=== PATIENT | male | born 1945 | race Caucasian/White ===

== ENCOUNTER → 2017-08-22 14:34 | Outpatient (POV) | payer MEDICARE, OTHER, SELFPAY | DX: Z00.00 Encounter for general adult medical examination without abnormal findings (principal) ==

== ENCOUNTER → 2017-10-10 13:30 | Outpatient (POV) | payer MEDICARE, OTHER, SELFPAY | DX: Z00.00 Encounter for general adult medical examination without abnormal findings (principal) ==

== ENCOUNTER 2020-03-16 01:16 | Inpatient (IN) | payer MEDICARE, SELFPAY ==
[2020-03-16] VITALS (21 sets, daily range): BP systolic 97–157; BP diastolic 45–87; PULSE 57–107; RESP 18–26; TEMP 36.1–38.8; O2SAT 81–96; BMI 30.5; BMI 27.8
--- NOTE | 2020-03-16 01:35 | PC.NURSE ---
EMS was given a contact number of [phone]
[2020-03-16 01:36] LABS: ABG Base Excess -7.1 mmol/L (-2.4-2.3); ABG HCO3 17.7 mmhg (22.0-26.0); ABG Oxygen Saturation 88 % (90-100); ABG PCO2 29.5 mmhg (35.0-45.0); ABG PO2 53.2 mmhg (80-100); ABG TCO2 18.6 mmhg (23-27); Allen's Test Acceptable; Oxygen 4L %; Source Left Radial
--- NOTE | 2020-03-16 01:39 | HMH.EDSOB ---
ED Disposition Clinical Impression: Pneumonia due to 2019 novel coronavirus, COVID-19 virus detected, Obesity (BMI 30.0-34.9), Diabetes mellitus, insulin dependent (IDDM), controlled Cholelithiasis Qualifiers: Cholelithiasis location: gallbladder Cholecystitis presence: without cholecystitis Biliary obstruction: without biliary obstruction Qualified Code(s): K80.20 - Calculus of gallbladder without cholecystitis without obstruction Disposition: Admitted As Inpatient Condition on Discharge: Fair Referrals: Awais Carrsaquillo MD [Primary Care Provider] - - Critical Care Critical Care Time: No Attestation: On 03/16/20, the high probability of a clinically significant, sudden or life threatening deterioration of the following system(s) required my full and direct attention, intervention and personal management. The time I documented below is in addition to time spent performing reported procedures but includes the following listed in this critical care notation. Medical Decision Making - Medical Records Medical records reviewed: Yes: I reviewed the patient's medical records. - Ad Inquiry Pt receiving controlled substance: No Vital Signs: 03/16/20 01:19 03/16/20 01:50 03/16/20 02:20 Temperature 101.8 F H Temperature Source Oral Pulse Rate [Right] 101 H 98 H 101 H Respiratory Rate 26 H 25 H 26 H Blood Pressure [Right Arm] 142/73 H 137/73 149/69 H Blood Pressure Mean [Right Arm] 96 94 95 Blood Pressure Source [Right Arm] Automatic Cuff Automatic Cuff Automatic Cuff Blood Pressure Position [Right Arm] Supine Sitting Sitting 02 Sat by Pulse Oximetry 81 L 93 L 92 L Oxygen Delivery Method Room Air Nasal Cannula Nasal Cannula Oxygen Flow Rate (LPM) 4 4 03/16/20 02:50 03/16/20 03:20 03/16/20 03:50 Temperature 101.1 F H 100.8 F H Temperature Source Oral Oral Pulse Rate [Right] 107 H 93 H 95 H Respiratory Rate 24 22 24 Blood Pressure [Right Arm] 147/83 H 142/77 H 152/78 H Blood Pressure Mean [Right Arm] 104 98 102 Blood Pressure Source [Right Arm] Manual Cuff/ Doppler Automatic Cuff Automatic Cuff Blood Pressure Position [Right Arm] Sitting Sitting Sitting 02 Sat by Pulse Oximetry 90 L 90 L 89 L Oxygen Delivery Method Nasal Cannula Nasal Cannula Nasal Cannula Oxygen Flow Rate (LPM) 4 4 4 03/16/20 04:20 03/16/20 04:50 03/16/20 05:20 Temperature Temperature Source Pulse Rate [Right] 94 H 87 62 Respiratory Rate 21 21 20 Blood Pressure [Right Arm] 152/87 H 127/63 104/45 L Blood Pressure Mean [Right Arm] 108 84 64 Blood Pressure Source [Right Arm] Automatic Cuff Automatic Cuff Automatic Cuff Blood Pressure Position [Right Arm] Sitting Sitting Sitting 02 Sat by Pulse Oximetry 92 L 91 L 91 L Oxygen Delivery Method Nasal Cannula Nasal Cannula Nasal Cannula Oxygen Flow Rate (LPM) 2 4 4 03/16/20 05:50 Temperature Temperature Source Pulse Rate [Right] 71 Respiratory Rate 20 Blood Pressure [Right Arm] 101/56 L Blood Pressure Mean [Right Arm] 71 Blood Pressure Source [Right Arm] Automatic Cuff Blood Pressure Position [Right Arm] Sitting 02 Sat by Pulse Oximetry 93 L Oxygen Delivery Method Nasal Cannula Oxygen Flow Rate (LPM) 4 - Lab Data Lab results reviewed: Yes: I reviewed the patient's lab results. Lab Results 03/16/20 01:10: WBC 8.9, RBC 4.43 L, Hgb 13.8 L, Hct 43.8, MCV 98.8 H, MCH 31.2, MCHC 31.6 L, RDW 13.3, Plt Count 282, MPV 8.3, Neut % (Auto) 83.9 H, Lymph % (Auto) 10.3, [place] % (Auto) 5.2, Eos % (Auto) 0.0 L, Baso % (Auto) 0.6, Neut # (Auto) 7.5, Lymph # (Auto) 0.9, [place] # (Auto) 0.5, Eos # (Auto) 0.0, Baso # (Auto) 0.1, ESR 109 H 03/16/20 01:10: Sodium 137, Potassium 4.8, Chloride 105, Carbon Dioxide 22, Anion Gap 14.8, BUN 67 H, Creatinine 2.20 H, Estimated Creat Clear 36, Estimated GFR 29 L, Est GFR ( Amer) 35 L, Glucose 299 H, Calcium 9.2, Total Bilirubin 0.6, AST 104 H, ALT 52, Alkaline Phosphatase 69, Troponin I 0.05 H, C-Reactive Protein 73.3 H, Total Protein 7.3, [place]
--- NOTE | 2020-03-16 01:39 | PC.NURSE ---
Pt was 81% O2 sats on room air, pt placed on 4 L/M of O2
[2020-03-16 01:42] LABS: Basophils # 0.1 K/mm3 (0-0.2); Basophils % 0.6 % (0.1-2.0); Hematocrit 43.8 % (42.0-52.0); Hemoglobin 13.8 g/dL (14.1-18.0); Lymphocytes # 0.9 K/mm3 (0.7-4.5); Lymphocytes % 10.3 % (10-50); Mean Corpuscular HGB Conc 31.6 g/dL (31.8-35.4); Mean Corpuscular Hemoglobin 31.2 pg (27.0-31.2); Mean Corpuscular Volume 98.8 fl (80-94); Mean Platelet Volume 8.3 fl (7.4-10.4); Monocytes # 0.5 K/mm3 (0.1-1.0); Monocytes % 5.2 % (1.7-9.3); Neutrophils # 7.5 K/mm3 (1.8-7.8); Neutrophils % 83.9 % (37.0-80.0); Platelet Count 282 K/mm3 (142-424); Red Blood Count 4.43 M/mm3 (4.60-6.20); Red Cell Distribution Width 13.3 % (11.5-17.5); White Blood Count 8.9 K/mm3 (4.8-10.8)
[2020-03-16 01:43] LABS: Chloride 105 mmol/L (98-107); Potassium 4.8 mmoL/L (3.5-5.1); Sodium 137 mmol/L (136-145)
[2020-03-16 01:43] LABS: Adenovirus,PCR Not Detected (NotDetected); Bordetella Pertussis Not Detected (NotDetected); Chlamydophila Pneumoniae, PCR Not Detected (NotDetected); Coronavirus 229E Not Detected (NotDetected); Coronavirus NL63 Not Detected (NotDetected); Coronavirus OC43 Not Detected (NotDetected); Coronovirus HKU1,PCR Not Detected (NotDetected); Human Metapneumovirus Not Detected (NotDetected); Influenza A, PCR Not Detected (NotDetected); Influenza AH1, 2009 Not Detected (NotDetected); Influenza AH1, PCR Not Detected (NotDetected); Influenza AH3,PCR Not Detected (NotDetected); Influenza B, PCR Not Detected (NotDetected); Mycoplasma Pneumoniae, PCR Not Detected (NotDetected); Parainfluenza 1, PCR Not Detected (NotDetected); Parainfluenza 2, PCR Not Detected (NotDetected); Parainfluenza 3, PCR Not Detected (NotDetected); Parainfluenza 4, PCR Not Detected (NotDetected); Respiratory Syncytial Virus Not Detected (NotDetected); Rhinovirus/Enterovirus Not Detected (NotDetected)
[2020-03-16 01:46] LABS: Alanine Aminotransferase 52 U/L (12-78); Albumin Level 3.8 g/dl (3.5-5.0); Albumin/Globulin Ratio 1.1 (1.1-1.8); Alkaline Phosphatase 69 U/L (38-126); Anion Gap 14.8 mEq/L (5-15); Aspartate Amino Transferase 104 U/L (17-59); Bilirubin,Total 0.6 mg/dl (0.2-1.3); Blood Urea Nitrogen 67 mg/dl (9-20); Carbon Dioxide 22 mmol/L (22.0-30.0); Creatinine Clearance Estimated 36 mL/min (50-200); Estimated Glomerular Filt Rate 29 ml/min (>60); GFR (African American) 35 ML/MIN (>60); Globulin 3.5 g/dL (1.3-3.2); Total Protein,Serum 7.3 g/dl (6.3-8.2)
[2020-03-16 01:47] LABS: Calcium 9.2 mg/dl (8.4-10.2); Glucose 299 mg/dl (74-100)
[2020-03-16 01:48] LABS: Lactic Acid 3.4 mmol/L (0.7-2.1)
[2020-03-16 01:52] LABS: C-Reactive Protein 73.3 mg/L (0-4)
[2020-03-16 02:00] LABS: Troponin I 0.05 ng/ml (0.00-0.034)
[2020-03-16 02:04] LABS: Coronavirus 19 IgG Antibody Positive (Negative); Coronavirus 19 IgM Antibody Negative (Negative)
--- NOTE | 2020-03-16 02:08 | XR_ITS ---
PROCEDURE: XR CHEST PORTABLE CLINICAL HISTORY: Shortness of breath Covid19 positive COMPARISON: No exams were available for comparison FINDINGS: The cardiomediastinal silhouette and pulmonary vascularity are within normal limits. There are low lung volumes. Consolidation noted in the peripheral aspect of the right upper and right lower lobe and left upper lobe consistent with bilateral pneumonia which has a ground-glass appearance consistent with pneumonia/Covid19 pneumonia no effusions. No acute bony abnormalities. IMPRESSION: Bilateral pneumonia Dictated by: Lizandro Elena MD 03/16/2020 05:31 Lizandro Elena MD in [place] 03/16/2020 05:31
--- NOTE | 2020-03-16 02:12 | PC.NURSE ---
speaking to dr perez at this time
--- NOTE | 2020-03-16 02:14 | ECG_ITS ---
APPROVED REPORT Exam: Resting ECG HR:140 bpm ECG Measurements Heart Rate 140 AXES QRSd 84 QRS -36 QT 310 T 101 QTc 473 Conclusion Supraventricular tachycardia Left axis deviation ST & T wave abnormality, consider lateral ischemia Abnormal ECG Electronically signed by : Timoteo Ceja, 03/16/2020 06:56:00
[2020-03-16 02:36] LABS: Erythrocyte Sedimentation Rate 109 mm/hr (0-20)
[2020-03-16 03:06] LABS: Coronavirus 19, PCR Detected (NotDetected)
--- NOTE | 2020-03-16 04:20 | CT_ITS ---
PROCEDURE: CT CHEST WO CON Post understand this this 6 this this this CLINICAL INDICATION: SOA, COVID COMPARISON: No exams were available for comparison TECHNIQUE: Axial images obtained with sagittal and coronal reformats. All CT scans at the facility use one or more dose reduction, viz: automated exposure control, ma/kV adjustment per patient size (including targeted exams where dose is matched to indication, i.e. head), or iterative reconstruction technique. FINDINGS: There is mild cardiomegaly. Coronary artery calcifications are noted. There is thickening of the gastroesophageal junction. This is nonspecific and may only be due to nondistention. Neoplasm or esophagitis is also considered in the differential diagnosis. Barium swallow or upper endoscopy may provide further evaluation.. There is patchy multifocal ground-glass infiltrates within the lower lobes lingula and right middle lobe and both upper lobes consistent with Covid19 related pneumonia. No effusions. The extreme posterior costophrenic sulcus on the right is not imaged. Bilateral gynecomastia. Cholelithiasis noted. IMPRESSION: 1. Multifocal ground-glass infiltrates throughout both lungs consistent with Covid19 related pneumonia. 2. Cardiomegaly with coronary artery calcifications. 3. Cholelithiasis Dictated by: Lizandro Elena MD 03/16/2020 07:17 Lizandro Elena MD in [place] 03/16/2020 07:17
--- NOTE | 2020-03-16 04:56 | PC.NURSE ---
Pt in CT
--- NOTE | 2020-03-16 04:58 | PC.NURSE ---
pt back from CT
[2020-03-16 05:21] LABS: Reflex Lactic Add Lactic Reflex
[2020-03-16 05:30] LABS: Lactic Acid Follow Up (RFLX 1) 1.4 mmol/L (0.7-2.1)
[2020-03-16 05:43] LABS: Troponin I 0.04 ng/ml (0.00-0.034)
--- NOTE | 2020-03-16 06:21 | PC.NURSE ---
on the phone with Dr. Michel
--- NOTE | 2020-03-16 06:27 | PC.NURSE ---
Pt admitted for COVID 19, no Negative pressure rooms available, pt will be boarding in ED
--- NOTE | 2020-03-16 08:45 | PC.NURSE ---
contacted the [facility] unit to check on bed status, spoke with antonia who states both nurses are busy but he will have them call me.
--- NOTE | 2020-03-16 09:00 | PC.NURSE ---
Pt sitting on side of bed eating breakfast at this time. No complaints. Called to check status of bed, advised they would call back
--- NOTE | 2020-03-16 09:09 | HMH.PHAVTE ---
[facility] Pharmacy VTE Monitoring - Patient Demographics Admission date: 03/16/20 Report Date: 03/16/20 Time: 09:09 Allergies/Adverse Reactions: Patient Allergies No Known Allergies Allergy (Verified 12/26/18 19:28) Height: 1.7 m Weight: 88.451 kg Patient Problems: Current Active Problems Pneumonia due to 2019 novel coronavirus (Acute) COVID-19 virus detected (Acute) Obesity (BMI 30.0-34.9) (Acute) Cholelithiasis (Acute) Diabetes mellitus, insulin dependent (IDDM), controlled (Acute) - VTE Risk Labs: VTE Related Lab Results Hgb 13.8 g/dL (14.1-18.0) L 03/16/20 01:10 Hct 43.8 % (42.0-52.0) 03/16/20 01:10 Plt Count 282 K/mm3 (142-424) 03/16/20 01:10 BUN 67 mg/dl (9-20) H 03/16/20 01:10 Creatinine 2.20 mg/dl (0.66-1.25) H 03/16/20 01:10 Estimated Creat Clear 36 mL/min (50-200) 03/16/20 01:10 Clinical Trial Participant: No - Prophylaxis VTE Prophylaxis Ordered?: Yes Types of VTE Prophylaxis: TEDS Knee High
--- NOTE | 2020-03-16 09:14 | PC.NURSE ---
contacted [facility] unit again at this time to check on bed status, spoke with Konrad who states both nurses area still busy.
--- NOTE | 2020-03-16 09:19 | PC.NURSE ---
Dr Carrasquillo's SHIPPING WEIGHER at bedside at this time.
--- NOTE | 2020-03-16 09:22 | HMH.PHAINT ---
clarified home medication list with list from [facility] office and home pharmacy
--- NOTE | 2020-03-16 09:30 | PC.NURSE ---
Spoke with Jessica about patient.
--- NOTE | 2020-03-16 09:45 | HMH.HP ---
*Admission Date: 03/16/20 <Barby Lazaro - 03/16/20 10:26> *Chief complaint: cough; falls <Barby Lazaro - 03/16/20 10:26> *History of present illness: Mr. 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 with shortness of breath. According the ER record he has not been feeling well since the holidays. When questioning today he admits to not feeling well for the last week. He describes shortness of breath and frequent falls. He has had to be picked up by his sons. He denies cough although he has been coughing frequently during this assessment. He states the cough is nonproductive. He also states that he has not had a fever. He has probably had some postnasal drainage. He feels he has been eating and drinking as usual at home. He also stated that his whole family has been sick. With evaluation in the emergency room chest x-ray and CT of the chest revealed multifocal ground glass infiltrates throughout both lungs consistent with COVID-19 related pneumonia, cardiomegaly with coronary artery calcifications and cholelithiasis. Laboratory data: ABGs revealed a pH of 7.4 PCO2 of 29.5 PO2 53.2 and a bicarb of 17.7. CBC with a white blood cell count of 8900, hemoglobin of 13.8 and hematocrit of 43.8 with a left shift. Blood chemistries reveal normal electrolytes and BUN of 67 creatinine of 2.2. GFR is 29. Blood sugar is 299. Lactate was 3.4 and reduced to 1.4 after IV fluid boluses. Patient was also given dexamethasone IV and will receive remdesivir. Also to note patient Covid IgG was positive and IgM was negative. PCR was positive. Temp on admission to the emergency room was 101.1. This patient was admitted to the Covid unit with routine Covid orders. We will add Rocephin and Zithromax as well as DuoNeb's. <Barby Lazaro - 03/16/20 10:26> [facility] History Medical History: Reports:: Diabetes Mellitus Type 1, Diabetes Mellitus Type 2 (With diabetic neuropathy and retinopathy), Hyperlipidemia, Hypertension, Transient Ischemic Attacks (TIA) Denies:: Internal Pacemaker, Lung Disease, Seizures <Lazaro,Barby 03/16/20 10:26> *Have you ever received a pneumonia vaccine?: Yes <Lazaro,Barby 03/16/20 10:26> *Have you received a flu vaccine this season?: Yes <TejasBarby 03/16/20 10:26> Laterality Cases: Bilateral: Cataract <TejasBarby 03/16/20 10:26> Other Surgeries: No: Pacemaker <LazaroBarby 03/16/20 10:26> Comment: Multiple retinal surgeries <TejasBarby 03/16/20 10:26> - *Social History Smoking Status: Never smoker <TejasBarby 03/16/20 10:26> Alcohol Intake: never <TejasBarby 03/16/20 10:26> *Occupational Status:: retired <TejasBarby 03/16/20 10:26> *Travel in the last 8 weeks: None <TejasBarby 03/16/20 10:26> Family Hx:: Cancer, Diabetes <TejasBarby 03/16/20 10:26> Review of Systems - Constitutional Denies body ache(s), Denies fever(s) <TejasBarby 03/16/20 10:26> - Eyes Denies change in vision <TejasBarby 03/16/20 10:26> - ENT Denies ear pain, Denies sore throat <Barby Lazaro 03/16/20 10:26> - *Cardiovascular Reports shortness of breath, Denies chest pain <Barby Lazaro 03/16/20 10:26> - *Respiratory Reports cough, Reports shortness of breath <Joi Lazarohy 03/16/20 10:26> - *Gastrointestinal Denies abdominal pain, Denies belching, Denies change in bowel habits, Denies nausea, Denies vomiting <Barby Lazaro 03/16/20 10:26> - *Genitourinary Denies difficulty urinating <Barby Lazaro 03/16/20 10:26> - *Musculoskeletal Reports abnormal walking (Has had multiple falls. Worse this past week.) <Barby Lazaro - 03/16/20 10:26> - *Neurologic Denies seizure-like activity, Denies headache(s), Denies seizure-like act
[2020-03-16 12:03] LABS: POC Glucose,Bedside 423 (70-110)
[2020-03-16 16:19] LABS: POC Glucose,Bedside 243 (70-110)
[2020-03-16 16:19] LABS: POC Glucose,Bedside 182 (70-110)
--- NOTE | 2020-03-16 18:35 | PC.NURSE ---
Pt is alert and oriented x4. Lungs clear but diminished. He remains on 4L NC with O2 in the mid 90's. He ambulated to the bathroom with 1 assist. Abdomen is large and round with umbilicus protruding. He has scattered scabbing to ble and upper extremities. He had 1 episode in bowel and bladder incontinence. Appetite is poor. Meds crushed and mixed with applesauce. Report to be given to oncoming nurse.
--- NOTE | 2020-03-16 19:05 | PC.NURSE ---
Kina aware of dr Candida rodas
[2020-03-16 20:26] LABS: POC Glucose,Bedside 147 (70-110)
[2020-03-17] VITALS (27 sets, daily range): BP systolic 91–142; BP diastolic 47–90; PULSE 64–140; RESP 15–36; TEMP 36.7–38.4; O2SAT 84–99; BMI 28.4; BMI 28.3
--- NOTE | 2020-03-17 00:45 | ECG_ITS ---
APPROVED REPORT Exam: Resting ECG HR:131 bpm ECG Measurements Heart Rate 131 AXES QRSd 94 QRS -5 QT 296 T 115 QTc 437 Conclusion Atrial fibrillation with rapid ventricular response with premature ventricular or aberrantly conducted complexes ST & T wave abnormality, consider lateral ischemia or digitalis effect Abnormal ECG Electronically signed by : Timoteo Ceja, 03/18/2020 19:30:35
[2020-03-17 02:26] LABS: Chloride 115 mmol/L (98-107); Potassium 4.3 mmoL/L (3.5-5.1); Sodium 141 mmol/L (136-145)
[2020-03-17 02:29] LABS: Alanine Aminotransferase 42 U/L (12-78); Alkaline Phosphatase 58 U/L (38-126); Anion Gap 13.3 mEq/L (5-15); Aspartate Amino Transferase 87 U/L (17-59); Bilirubin,Total 0.4 mg/dl (0.2-1.3); Blood Urea Nitrogen 52 mg/dl (9-20); Carbon Dioxide 17 mmol/L (22.0-30.0); Creatine Kinase 1050 U/L (55-170); Creatinine Clearance Estimated 43 mL/min (50-200); Estimated Glomerular Filt Rate 39 ml/min (>60); GFR (African American) 48 ML/MIN (>60)
[2020-03-17 02:30] LABS: Calcium 8.5 mg/dl (8.4-10.2); Glucose 232 mg/dl (74-100)
[2020-03-17 02:38] LABS: CKMB Relative Index 0.9 U/L (0-4.0)
[2020-03-17 02:42] LABS: Troponin I 0.04 ng/ml (0.00-0.034)
[2020-03-17 02:43] LABS: Basophils % 0.2 % (0.1-2.0); Eosinophils % 0.1 % (0.1-12.0); Hematocrit 40.2 % (42.0-52.0); Hemoglobin 12.2 g/dL (14.1-18.0); Lymphocytes # 0.8 K/mm3 (0.7-4.5); Lymphocytes % 5.8 % (10-50); Mean Corpuscular HGB Conc 30.4 g/dL (31.8-35.4); Mean Corpuscular Hemoglobin 30.6 pg (27.0-31.2); Mean Corpuscular Volume 100.9 fl (80-94); Mean Platelet Volume 8.8 fl (7.4-10.4); Monocytes # 0.6 K/mm3 (0.1-1.0); Monocytes % 4.7 % (1.7-9.3); Neutrophils # 11.9 K/mm3 (1.8-7.8); Neutrophils % 89.2 % (37.0-80.0); Platelet Count 289 K/mm3 (142-424); Red Blood Count 3.99 M/mm3 (4.60-6.20); Red Cell Distribution Width 13.5 % (11.5-17.5); White Blood Count 13.3 K/mm3 (4.8-10.8)
[2020-03-17 02:45] LABS: Creatine Kinase MB 9.7 ng/ml (0.0-2.03); MANUAL DIFFERENTIAL MANUAL DIFFERENTIAL (MANUAL DIFF)
--- NOTE | 2020-03-17 04:50 | PC.NURSE ---
pt had tachycardia this shift and ekg was performed to show afib with rvr. cardizem drip was started to keep hr less than 100. titrated drip to 20 mg/hr and pt is currently between 90 and 110. o2 sat was unable to be maintained and was transitioned from NC to Ventimask with no improvement. pt was placed on vapotherm 40L and FIO2 100%. o2 sat is currently around 90%. pt has noted redness to ray area. call light in reach. will continue to monitor pt condition.
[2020-03-17 05:38] LABS: Lymphocytes % 7 % (10-50); Monocytes % 1 % (2-9); Neutrophils % 92 % (42-76); Total Cells Counted 100
[2020-03-17 05:39] LABS: Acanthocytes 1+; Macrocytosis 1+; Ovalocytes 1+; Platelet Estimate Normal
[2020-03-17 05:52] LABS: POC Glucose,Bedside 251 (70-110)
--- NOTE | 2020-03-17 06:23 | PC.NURSE ---
titrated to 15mg/hr at this time
--- NOTE | 2020-03-17 07:17 | PC.NURSE ---
pt has become more confused and restless
--- NOTE | 2020-03-17 08:27 | XR_ITS ---
PROCEDURE: XR CHEST PORTABLE CLINICAL HISTORY: f/u COVID pneumonia Respiratory failure COMPARISON: CT CT CHEST WO CON from 03/16/2020 CR XR CHEST PORTABLE from 03/16/2020 FINDINGS: 11:07 a.m.. Endotracheal tube has been placed. The tip is in good position nearly 4 cm above the jessica at the T4 level. NG tube is also present with the tip in the region of the body of the stomach. There is diffuse bilateral pneumonia which appears worse in both right upper and lower lobe and left mid lower lung zone. Right-sided pneumonia is more extensive than the left. There is a right IJ central venous line with the tip in the region the SVC. No evidence of pneumothorax. IMPRESSION: Tubes and lines in good position as described above. Diffuse bilateral pneumonia. Dictated by: Lizandro Elena MD 03/17/2020 11:30 Lizandro Elena MD in [place] 03/17/2020 11:30
--- NOTE | 2020-03-17 08:28 | CA_ITS ---
APPROVED REPORT EXAM: Comprehensive 2D, Doppler, and color-flow Echocardiogram Front Loader Residential Driver: Lary Correa, RT(R) Ht: 5 ft 7 in Wt: 181lbs BSA: 1.94 BP: 142/57 mmHg Indications: Afib, HTN, DM, SOB, hyperlipidemia, COVID+, post cardiac arrest, pneumonia, tachycardia, TIA 2D Dimensions LVOT 2.02 cm (M/F) 1.5-2.5 M-Mode Dimensions RVDd 2.35 cm (0.9-2.6) LA Diam 4.84 cm (1.9-4.0) LVDd 4.53 cm (3.5-5.7) Ao Diam 3.95 cm (2.0-3.7) LVDs 3.78 cm (3.5-5.7) IVSd 0.61 cm (0.6-1.1) PWd 1.18 cm (0.6-1.1) EF (Teich) 34.80% FS 16.60% EDV (Teich) 93.90 mL ESV (Teich) 61.20 mL LV Diastology E Decel Time 150.00 (160-240 msec) E/A Ratio 2.6 Mitral Valve MV E Max Satnam. 77.00 (40-130 cm/s) MV A Velocity 30.00 (40-130 cm/s) E/A Ratio 2.60 MV Decel. Time 150.00 (160-240 ms) MV PHT 44.00 ms Left Ventricle Technically very difficult study because of the patient factors and poor acoustic windows. Left atrium is mildly enlarged, left ventricle is normal size, there is mild concentric left ventricular hypertrophy, probably preserved left ventricular systolic function, visually estimated ejection fraction 55%, with no obvious regional wall motion abnormality, although endocardial surfaces are very poorly visualized. Right Ventricle Right atrium and right ventricle are mildly enlarged with normal contractility. Aortic Valve Aortic valve is thickened and calcified without aortic stenosis or aortic insufficiency. Mitral Valve Mitral valve is grossly normal, there is mild mitral regurgitation. Tricuspid Valve Tricuspid valve grossly normal, there is mild tricuspid regurgitation, tricuspid regurgitation jet velocity is inadequate for calculation of the right ventricular systolic pressure. Pulmonic Valve Pulmonic valve is poorly visualized. Great Vessels Aortic root is normal size. Pericardium No significant pericardial effusion noted. Conclusion 1. Technically difficult study because of the patient factors and poor acoustic windows. 2. Probably preserved left ventricular systolic function, visually estimated ejection fraction 55% with no regional wall motion abnormality, endocardial surfaces are very poorly visualized. Diastolic parameters are inconclusive. 3. Mildly enlarged right ventricle with normal contractility. 4. Thickened and calcified aortic valve without aortic stenosis or aortic insufficiency 5. Mild mitral and tricuspid regurgitation. 6. No significant pericardial effusion noted. Electronically signed by : Andrez Frances, 03/18/2020 15:16:44
--- NOTE | 2020-03-17 08:28 | HMH.ACPN2 ---
<Barby Lazaro - Last Filed: 03/17/20 08:28> Internal Medicine - PN: Subj *Date: 03/17/20 *Time: 08:28 Interval history: Patient denies chest pain and shortness of breath although respiratory rate is in the 30s. He moans with every breath but he states this is normal for him. He said he slept some during the night.Laboratory data this morning reveals white blood cell count of 13,300 and hemoglobin of 12.2 with hematocrit of 40.2. Blood chemistries show sodium of 141 and potassium of 4.3 with a BUN of 52 creatinine of 1.7. CPK is elevated at 1050 with a CK-MB of 9.7 and troponin I of 0.04. Patient remains on Vapotherm at 100%. During the night he developed atrial fibrillation and was started on a Cardizem drip. Nurses feel that he is confused this morning. Exam Vital signs and Labs for Last 24 Hours: Temp Pulse Resp BP Pulse Ox 100.2 F H 98 H 28 H 126/78 85 L 03/17/20 08:00 03/17/20 08:00 03/17/20 08:00 03/17/20 08:00 03/17/20 08:00 Laboratory Results - last 24 hr 03/16/20 11:30: POC Glucose 423 H* 03/16/20 16:02: POC Glucose 243 H 03/16/20 16:11: POC Glucose 182 H 03/16/20 20:17: POC Glucose 147 H 03/17/20 02:00: WBC 13.3 H D, RBC 3.99 L, Hgb 12.2 L, Hct 40.2 L, MCV 100.9 H, MCH 30.6, MCHC 30.4 L, RDW 13.5, Plt Count 289, MPV 8.8, Neut % (Auto) 89.2 H, Lymph % (Auto) 5.8 L, [place] % (Auto) 4.7, Eos % (Auto) 0.1, Baso % (Auto) 0.2, Neut # (Auto) 11.9 H, Lymph # (Auto) 0.8, [place] # (Auto) 0.6, Eos # (Auto) 0.0, Baso # (Auto) 0.0, Total Counted 100, Neutrophils % (Manual) 92 H, Lymphocytes % (Manual) 7 L, Monocytes % (Manual) 1 L, Platelet Estimate Normal, Macrocytosis 1+, Ovalocytes 1+, Acanthocytes (Spur) 1+ 03/17/20 02:00: Sodium 141, Potassium 4.3, Chloride 115 H, Carbon Dioxide 17 L D, Anion Gap 13.3, BUN 52 H, Creatinine 1.70 H D, Estimated Creat Clear 43, Estimated GFR 39 L, Est GFR ( Amer) 48 L D, Glucose 232 H, Calcium 8.5, Total Bilirubin 0.4, AST 87 H, ALT 42, Alkaline Phosphatase 58, Total Protein 6.0 L, Albumin 3.0 L D, Globulin 3.0, Albumin/Globulin Ratio 1.0 L 03/17/20 02:00: Total Creatine Kinase 1050 H*, CK-MB (CK-2) 9.7 H*, CK-MB (CK-2) Rel Index 0.9, Troponin I 0.04 H 03/17/20 05:43: POC Glucose 251 H I & O for Last 24 hours: Intake & Output 03/14/20 03/15/20 03/16/20 03/17/20 11:59 11:59 11:59 11:59 Intake Total 1803 / 1803 Output Total 600 / 600 Balance 1203 / 1203 Weight 177 lb 14.609 oz 181 lb 7.047 oz - Constitutional mild distress Comments: Lying on his side with respiratory rate in the 30s. Moans on inspiration although he states this is normal for him. - *Routine Respiratory Exam Present: other Comments: Moving air better today with fewer crackles. - *Routine Cardiovascular Exam Present: irregular rhythm (Monitor showing atrial fibrillation.) - *Routine Abdominal Exam Present: soft, normoactive bowel sounds, obese. Absent: tenderness - *Routine Extremities Exam Absent: edema - *Routine Neurological Exam Present: alert (answers questions appropriately) Assessment and Plan (1) Pneumonia due to 2019 novel coronavirus Status: Acute Category: Medical Code(s): U07.1 - COVID-19; J12.82 - Pneumonia due to coronavirus disease 2019 (2) COVID-19 virus detected Status: Acute Category: Medical Code(s): U07.1 - COVID-19 (3) Obesity (BMI 30.0-34.9) Status: Acute Category: Medical Code(s): E66.9 - Obesity, unspecified (4) Acute respiratory failure with hypoxia Status: Acute Category: Medical Code(s): J96.01 - Acute respiratory failure with hypoxia (5) Hypertension Status: Chronic Category: Medical Code(s): I10 - Essential (primary) hypertension (6) Uncontrolled type 2 diabetes mellitus Status: Chronic Category: Medical Code(s): E11.65 - Type 2 diabetes mellitus with hyperglycemia - Assessment and plan all Dx Assessment and Plan for all problems:: continue with COVID orders; is on Cardizem gtt, Rocephin a
[2020-03-17 09:01] LABS: ABG Base Excess -9.7 mmol/L (-2.4-2.3); ABG HCO3 15.4 mmhg (22.0-26.0); ABG Oxygen Saturation 84 % (90-100); ABG PCO2 26.4 mmhg (35.0-45.0); ABG PH 7.38 mmol/L (7.35-7.45); ABG TCO2 16.2 mmhg (23-27)
[2020-03-17 09:03] LABS: Allen's Test Non Applicable; Oxygen 100 %; Source Left Radial
[2020-03-17 09:06] LABS: ABG PO2 47.9 mmhg (80-100)
--- NOTE | 2020-03-17 10:12 | HMH.CNCARD ---
History of Present Illness Consult date: 03/17/20 Requesting physician: Awais Carrasquillo Consult reason: atrial fibrillation Chief complaint: afib History of present illness: This is a 75-year-old white gentleman who presented to the emergency department with complaints of shortness of breath. She had also been having frequent falls. On review of his records it states that the patient did have a nonproductive cough associated with his shortness of breath. No fever or chills. But is some postnasal drainage noted as well. He denies being in contact with anybody who had recently been sick. The patient tested positive for COVID-19 and was admitted to the hospital. During the night last night the patient did go into atrial fibrillation with RVR and was started on a Cardizem drip. The patient now remains in atrial fibrillation with a heart rate in the 100s. His oxygen saturation has continued to worsen despite being on a Vapotherm mask at 100%. The patient is prepped to undergo oral intubation and be put on the ventilator due to his respiratory failure. His atrial fibrillation is new onset. He denies any history of coronary artery disease. The patient is somewhat confused today. [facility] History I have reviewed the patient's past medical history: Yes Medical History: Reports:: Atrial Fibrillation, Diabetes Mellitus Type 2, Hyperlipidemia, Hypertension, Transient Ischemic Attacks (TIA) Denies:: Cancer, Diabetes Mellitus Type 1, Internal Pacemaker, Lung Disease, MRSA, Seizures *Have you ever received a pneumonia vaccine?: Yes *Have you received a flu vaccine this season?: Yes Laterality Cases: Bilateral: Cataract Other Surgeries: Yes: No Previous Surgery. No: Pacemaker Amputation: No Fractures: No - *Social History Smoking Status: Never smoker Alcohol Intake: never *Occupational Status:: retired Household Members: spouse *Travel in the last 8 weeks: None Family Hx:: Cancer, Diabetes Meds Home Medications Medication Instructions Recorded Confirmed Type Insulin NPH Hum/Reg Insulin Hm 70 units SQ TID 02/01/18 03/16/20 History [Relion Novolin 70-30 Vial] Simvastatin 20 mg PO DAILY 02/01/18 03/16/20 History Aspirin [Aspirin 325mg Tab] 325 mg PO DAILY 03/16/20 03/16/20 History lisinopriL [Lisinopril 10mg Tab] 10 mg PO DAILY 03/16/20 03/16/20 History Allergies Allergy/AdvReac Type Severity Reaction Status Date / Time No Known Allergies Allergy Verified 12/26/18 19:28 Exam Vital signs and Labs for Last 24 Hours: Temp Pulse Resp BP Pulse Ox 98.0 F 97 H 36 H 142/57 H 84 L 03/17/20 09:26 03/17/20 09:26 03/17/20 09:26 03/17/20 09:26 03/17/20 09:26 Laboratory Results - last 24 hr 03/16/20 11:30: POC Glucose 423 H* 03/16/20 16:02: POC Glucose 243 H 03/16/20 16:11: POC Glucose 182 H 03/16/20 20:17: POC Glucose 147 H 03/17/20 02:00: WBC 13.3 H D, RBC 3.99 L, Hgb 12.2 L, Hct 40.2 L, MCV 100.9 H, MCH 30.6, MCHC 30.4 L, RDW 13.5, Plt Count 289, MPV 8.8, Neut % (Auto) 89.2 H, Lymph % (Auto) 5.8 L, [place] % (Auto) 4.7, Eos % (Auto) 0.1, Baso % (Auto) 0.2, Neut # (Auto) 11.9 H, Lymph # (Auto) 0.8, [place] # (Auto) 0.6, Eos # (Auto) 0.0, Baso # (Auto) 0.0, Total Counted 100, Neutrophils % (Manual) 92 H, Lymphocytes % (Manual) 7 L, Monocytes % (Manual) 1 L, Platelet Estimate Normal, Macrocytosis 1+, Ovalocytes 1+, Acanthocytes (Spur) 1+ 03/17/20 02:00: Sodium 141, Potassium 4.3, Chloride 115 H, Carbon Dioxide 17 L D, Anion Gap 13.3, BUN 52 H, Creatinine 1.70 H D, Estimated Creat Clear 43, Estimated GFR 39 L, Est GFR ( Amer) 48 L D, Glucose 232 H, Calcium 8.5, Total Bilirubin 0.4, AST 87 H, ALT 42, Alkaline Phosphatase 58, Total Protein 6.0 L, Albumin 3.0 L D, Globulin 3.0, Albumin/Globulin Ratio 1.0 L 03/17/20 02:00: Total Creatine Kinase 1050 H*, CK-MB (CK-2) 9.7 H*, CK-MB (CK-2) Rel Index 0.9, Troponin I 0.04 H 03/17/20 05:43: POC Glucose 251 H 03/17/20 08:28: Specimen Source Left radial, O2 % 100, ABG pH 7.38, ABG
[2020-03-17 11:17] LABS: ABG PCO2 44.3 mmhg (35.0-45.0); ABG PH 7.04 mmol/L (7.35-7.45); ABG PO2 47.1 mmhg (80-100)
[2020-03-17 11:18] LABS: ABG Base Excess -18.4 mmol/L (-2.4-2.3); ABG HCO3 11.7 mmhg (22.0-26.0); ABG Oxygen Saturation 66 % (90-100); ABG TCO2 13.1 mmhg (23-27)
[2020-03-17 11:19] LABS: Oxygen 100 %; Source Right Brachial
--- NOTE | 2020-03-17 11:43 | HMH.PROC ---
Procedures - Central Line Placement Right IJ Patient Placed on Monitor/Pulse Ox: Yes Prep: mask, gown, gloves Central Line Prep: Povidone-Iodine 1%, sterile drapes applied Ultrasound Used for Placement: Yes Central Line Lumen Inserted: triple Post Procedure: sutured in place, good blood return, all ports aspirated, flushed, capped, sterile dressing applied Post Procedure X-Ray: tip of catheter in good position Patient Tolerated Procedure: well Additional Comments: Procedure was performed post cardiac arrest with intubated patient and sedated state, intensive care physician asked for help from the emergency medicine provider and I was able to come up and place a line for them
[2020-03-17 12:29] LABS: Microscopic, Urine URINE MICROSCOPIC (MICROSCOPIC)
[2020-03-17 12:30] LABS: Appearance,Urine SL CLOUDY (Clear); Bilirubin,Urine Negative (Negative); Blood, Urine TRACE-I (Negative); Color,Urine YELLOW (Yellow); Glucose,Urine (UA) Negative (Negative); Ketones,Urine TRACE (Negative); Leukocyte Esterase,Urine Negative (Negative); Nitrate,Urine Negative (Negative); PH,Urine 5.5 (5.0-8.5); Protein,Urine 2+ (Negative); Specific Gravity, Urine >= 1.030 (1.005-1.030); Urobilinogen,Urine 0.2 EU/dl (0.2)
[2020-03-17 12:50] LABS: RBC,Urine Occasional #/hpf (0-3); Sperm,Urine 3+ /lpf; Squamous Epithelial Cell,Urine 20-50 #/hpf (0-5)
--- NOTE | 2020-03-17 13:08 | PC.NURSE ---
notified Dr. Barba of this mornings events
[2020-03-17 13:17] LABS: ABG Base Excess -13.2 mmol/L (-2.4-2.3); ABG HCO3 14.3 mmhg (22.0-26.0); ABG Oxygen Saturation 80 % (90-100); ABG PCO2 34.4 mmhg (35.0-45.0); ABG PH 7.24 mmol/L (7.35-7.45); ABG PO2 50.3 mmhg (80-100); ABG TCO2 15.3 mmhg (23-27)
[2020-03-17 13:22] LABS: Allen's Test ACCEPTABLE; Oxygen 100 %; PEEP 12; Source L RADIAL; Tidal Volume 440; Vent Rate 24
--- NOTE | 2020-03-17 13:56 | PC.NURSE ---
BP 96/56. Phenylephrine gtt increased to 45mcg/min.
--- NOTE | 2020-03-17 14:02 | HMH.PROC ---
[facility] Procedure Note Procedure Note:: Name of the procedure: Endotracheal intubation Reason for intubation: Acute hypoxic respiratory failure A time out was performed. My hands were washed immediately prior to the procedure. The patient was placed on a site monitor including continuous pulse oximetry. Rapid Sequence Intubation was conducted. The patient received 50 mg of Etomidate for induction and 50 mg of Rocoronium for adequate paralysis. Cricoid pressure was maintained from time induction agent was given to time of cuff balloon inflation. Using a Size 4 mac laryngoscope and a size 7.5 endotracheal tube with stylet, the patient was intubated on the first attempt. The stylet was removed and cuff balloon was inflated. Appropriate endotracheal tube position was confirmed by direct visualization of vocal cord passage, CO2 colometric indicator and bilateral symmetric breath sounds. The tube was secured at 26 cm at the lips. Post intubation chest x-ray is pending at this time. Patient tolerated the procedure well. Estimated blood loss - None
--- NOTE | 2020-03-17 14:39 | XR_ITS ---
PROCEDURE: XR CHEST PORTABLE CLINICAL HISTORY: change in oxygen status COMPARISON: CT CT CHEST WO CON from 03/16/2020 CR XR CHEST PORTABLE from 03/16/2020 CR XR CHEST PORTABLE from 03/17/2020 FINDINGS: Endotracheal tube tip is 2 cm above the jessica and could be withdrawn 2 cm. Right IJ central venous line and nasogastric tube remain in place. The NG tube tip is not well delineated. There remains diffuse bilateral pneumonia not significantly changed. IMPRESSION: No change diffuse bilateral pneumonia. Endotracheal tube tip is above the jessica. NG tube tip is not well delineated and may be better visualized with upper abdominal in film Dictated by: Lizandro Elena MD 03/17/2020 15:47 Lizandro Elena MD in OV 03/17/2020 15:47
--- NOTE | 2020-03-17 14:41 | PC.NURSE ---
SBP 150s. Phenylephrine gtt decreased to 40mcg/min. Ysabel Mendes APRN called and ordered to decrease Diltiazem gtt to 10mg/hr. Diltiazem gtt decreased per her order.
[2020-03-17 14:58] LABS: ABG Base Excess -13.2 mmol/L (-2.4-2.3); ABG HCO3 13.5 mmhg (22.0-26.0); ABG Oxygen Saturation 79 % (90-100); ABG PCO2 29.5 mmhg (35.0-45.0); ABG PH 7.28 mmol/L (7.35-7.45); ABG TCO2 14.4 mmhg (23-27)
[2020-03-17 14:59] LABS: Allen's Test ACCEPTABLE; Oxygen 100 %; PEEP 12
[2020-03-17 15:00] LABS: ABG PO2 47.5 mmhg (80-100); Source L RADIAL
--- NOTE | 2020-03-17 15:11 | PC.NURSE ---
pt bucking the vent and over breathing. Sats in the low 80s and RR in the high 30s. RT is bagging the pt. Versed gtt currently @ 0.06mg/kg/hr. Versed gtt increased to 0.07mg/kg/hr.
--- NOTE | 2020-03-17 15:25 | PC.NURSE ---
1015 Code announced 1018 pulse check, no pulse, compressions resumed (Cecelia) 1020 1mg epi given 1022 pulse check, no pulse, compressions resumed (Cecelia) 1023 1mg epi given 1024 pulse check, pulse palpated, HR 142, sinus tach per zoll monitor 1025 sinus tach 140 per zoll monitor 1028 sinus tach 143 per zoll monitor 1031 etomidate 50mg given IV 1032 rocuronium 50mg given IV 1033 7.5 et tube placed (per Dr Tirado), 26 cm @ the lip, color change noted on CO2 detector 1034 Bilateral breath sounds auscultated 1035 107/68, HR 163, R 22 1041 1L LR Bolus initiated; Vent settings: AC mode, R 24, TV 440, Peep 12, no pressure support, 100% fio2 1045 20 LAC started by Lianna Pavon RN; 103/59 HR 159 1048 - sputum collected by respiratory 1049 - OG tube placed 18fr, 65 @ the lip; ABG collected 1050 100/53; O2 89, HR 150 1055 89/56, HR 141, O2 96, R 26; sinus tach w/a few PVC's; 1 amp of bicarb given by Dr Tirado; ER MD at bedside prepping for deep line placement; pt hooked back up the vent; [id number] pt manually bagged by respiratory 1100 106/57, HR 131, R 24, O2 99%; levo gtt started @ 5mcg/min; ER MD attempting to start central line placement 1105 106/56, HR 146, R 23, O2 100; [address] being sewn in by ER MD (Dr Lamb); Xray notified of stat chest xray 1110 - 116/61, HR 134, R 24, O2 99%; xray at bedside for stat xray
--- NOTE | 2020-03-17 15:41 | DIET.NUTRFU ---
Addendum entered by Jacklyn Up 03/19/20 13:03: Kangaroo Pump available, bolus feeds had not yet been started. Order changed back to continuous as written below in original note. Addendum entered by Jacklyn Up 03/18/20 18:34: Was notified of supply shortage for continuous TF, bolus feedings are appropriate for pt. Recommend bolus feedings of pulmocare 1.5 of 255ml q 4hr. Pt meeting fluid needs through IVF, recommend minimal water flushes of 60-120ml for irrigation. no other changes to regimen, will monitor pt tolerance. Original Note: Pt intubated this am, If pt remains intubated, recommend initiating enteral nutrition. Pulmocare is the most appropriate formula choice. Recommend intitiating continuous tube feeding regimen of Pulmocare 1.5 at 20ml/hr and increase by 10ml/hr q 8hr as tolerated to goal rate of 67ml/hr. (increase by 7ml/hr in last 8hrs) Pt currently recieving IVF at 100ml/hr, recommend decreasing IVF rate as TF regimen progresses to goal rate. Formula at goal rate provides 1203ml free water, and water flushes with TF/meds provides an additional ~500ml. This regimen provides pt with 2300kcal, 96g protein, 162g cho, 143g fat, and 1203 free water. Will monitor pt's tolerance initiation/progression TF regimen and adjust as indicated.
--- NOTE | 2020-03-17 16:11 | PC.NURSE ---
Dr. Tirado @ [facility]. Rocuronium 50mg, 1 amp of Bicarb, and a Heparin gtt started per Dr. Tirado. He also ordered a STAT PTT, to increase Versed gtt to 0.1mg/kg/hr, and to discontinue MIVF (NS @ 100ml/hr). Pharmacy (Jennifer) @ [facility] to assist. Pt also positioned in reverse Trendelenburg position. Sats are now 89% on 100% FiO2. PEEP also increased to [address] Tirado.
[2020-03-17 16:42] LABS: POC Glucose,Bedside 309 (70-110)
[2020-03-17 16:42] LABS: POC Glucose,Bedside 304 (70-110)
[2020-03-17 16:50] LABS: Activated Partial Thrombo Time 35.4 seconds (23.6-34.0)
--- NOTE | 2020-03-17 16:55 | HMH.PULMCON ---
*Admission Date: 03/16/20 *Reason for consult:: Acute hypoxic respiratory failure, COVID-19 pneumonia *History of present illness: Patient was intubated and sedated much of the history was obtained from the patient chart. Mr. Sahu is a 75-year-old male with a medical history of Type 2 diabetes mellitus, with diabetic nephropathy neuropathy hypertension dyslipidemia medication noncompliance seasonal allergies presented to the emergency with worsening respiratory failure needing high flow nasal collar to maintain his saturations and pulmonary was called for further management. [facility] History Medical History: Reports:: Atrial Fibrillation, Diabetes Mellitus Type 2, Hyperlipidemia, Hypertension, Transient Ischemic Attacks (TIA) Denies:: Cancer, Diabetes Mellitus Type 1, Internal Pacemaker, Lung Disease, MRSA, Seizures *Have you ever received a pneumonia vaccine?: Yes *Have you received a flu vaccine this season?: Yes Laterality Cases: Bilateral: Cataract Other Surgeries: Yes: No Previous Surgery. No: Pacemaker Amputation: No Fractures: No - *Social History Smoking Status: Never smoker Alcohol Intake: never *Occupational Status:: retired Household Members: spouse *Travel in the last 8 weeks: None Family Hx:: Cancer, Diabetes ROS - Review of Systems Review of systems:: unable to obtain Unable to obtain as patient was intubated and sedated Meds Home Medications Medication Instructions Recorded Confirmed Type Insulin NPH Hum/Reg Insulin Hm 70 units SQ TID 02/01/18 03/16/20 History [Relion Novolin 70-30 Vial] Simvastatin 20 mg PO DAILY 02/01/18 03/16/20 History Aspirin [Aspirin 325mg Tab] 325 mg PO DAILY 03/16/20 03/16/20 History lisinopriL [Lisinopril 10mg Tab] 10 mg PO DAILY 03/16/20 03/16/20 History Allergies Allergy/AdvReac Type Severity Reaction Status Date / Time No Known Allergies Allergy Verified 12/26/18 19:28 Exam - Constitutional Comment:: Patient appears comfortable, intubated and sedated - HENMT Exam HENMT: normocephalic, atraumatic - Eye Exam Eyes:: normal conjunctiva - Neck Exam Neck:: thyroid normal, no lymphadenopathy - Respiratory Exam Comments: Bilateral diffuse coarse breath sounds, right greater than left. - Cardiovascular Exam Cardiac:: S1, S2 - GI Exam GI:: soft, no hepatosplenomegaly - Skin Exam Skin: warm - Neurological Exam Intubated and sedated. Appears comfortable. - Extremities Exam Extremities: no cyanosis, no clubbing Internal Medicine - CN: Reslt - Labs CBC & Chem 7: 03/17/20 02:00 03/17/20 02:00 Labs: Short CBC 03/17/20 Range/Units 02:00 WBC 13.3 H D (4.8-10.8) K/mm3 Hgb 12.2 L (14.1-18.0) g/dL Hct 40.2 L (42.0-52.0) % Plt Count 289 (142-424) K/mm3 BMP 03/17/20 02:00 Sodium 141 Potassium 4.3 Chloride 115 H Carbon Dioxide 17 L D BUN 52 H Creatinine 1.70 H D Glucose 232 H Calcium 8.5 Cardiac Enzymes 03/17/20 Range/Units 02:00 Total Creatine Kinase 1050 H* (55-170) U/L CK-MB (CK-2) 9.7 H* (0.0-2.03) ng/ml Troponin I 0.04 H (0.00-0.034) ng/ml Liver Function 03/17/20 Range/Units 02:00 Total Bilirubin 0.4 (0.2-1.3) mg/dl AST 87 H (17-59) U/L ALT 42 (12-78) U/L Alkaline Phosphatase 58 (38-126) U/L Albumin 3.0 L D (3.5-5.0) g/dl Urine 03/17/20 Range/Units 11:30 Urine Color Yellow (Yellow) Urine Appearance Sl cloudy (Clear) Urine pH 5.5 (5.0-8.5) Ur Specific [place] >= 1.030 (1.005-1.030) Urine Protein 2+ (Negative) Urine Glucose (UA) Negative (Negative) - ABG Interpretation ABG results: 03/16/20 03/17/20 03/17/20 01:31 08:28 10:50 ABG pH 7.40 7.38 7.04 L* ABG pCO2 29.5 L 26.4 L 44.3 ABG pO2 53.2 L 47.9 L 47.1 L ABG HCO3 17.7 L 15.4 L 11.7 L ABG Total CO2 18.6 L 16.2 L 13.1 L ABG O2 Saturation 88 L 84 L* 66 L* ABG Base Excess -7.1 L -9.7 L -18.4 L 03/17/20
[2020-03-17 17:14] LABS: ABG PCO2 43.2 mmhg (35.0-45.0); ABG PH 7.23 mmol/L (7.35-7.45)
[2020-03-17 17:15] LABS: ABG Base Excess -9.5 mmol/L (-2.4-2.3); ABG HCO3 17.6 mmhg (22.0-26.0); ABG Oxygen Saturation 89 % (90-100); ABG PO2 64.2 mmhg (80-100); Oxygen 100 %; PEEP 20; Tidal Volume 420; Vent Rate 18
[2020-03-17 17:16] LABS: Pressure Support 0; Source Right Brachial
--- NOTE | 2020-03-17 17:19 | PC.NURSE ---
received call from Dr. Tirado ordering to pull ET tube out 2cm. Called RT (Trang)
--- NOTE | 2020-03-17 17:51 | PC.NURSE ---
Resp Care Note ET Tube pulled back to read 24(L) per Dr Tirado order.
--- NOTE | 2020-03-17 19:42 | PC.NURSE ---
shift note: Pt remains intubated. Current settings: 100% FiO2, AC, 18, 420, 20/-. Was intubated with a 7.5 ET tube that is 24 @ the lip. Pt remains in reverse trendelenburg position for optimal lung expansion. 18fr OG tube is 65 @ the lip. Pt has right IJ TLDL. Current gtts: Heparin 1300units/hr, Diltiazem 10mg/hr, Versed 0.1mg/kg/hr, Fentanyl 50mcg/hr, and Phenylephrine 40mcg/min. Goal is to keep HR 60-100 and SBP>100. Family has been updated several times today. Pt remains a FULL CODE at this time.
[2020-03-17 23:02] LABS: Activated Partial Thrombo Time 168.8 seconds (23.6-34.0)
[2020-03-17 23:45] LABS: POC Glucose,Bedside 384 (70-110)
[2020-03-18] VITALS (31 sets, daily range): BP systolic 72–129; BP diastolic 38–65; PULSE 60–72; RESP 18–24; TEMP 36.6–37.8; O2SAT 93–100; BMI 30.7
--- NOTE | 2020-03-18 03:37 | PC.NURSE ---
2000 patient in sr with rate in the 70s, dr. beach notified, zero new order for po cardizem. order to continue with iv cardizem.
--- NOTE | 2020-03-18 03:38 | PC.NURSE ---
2300 received call from pharmacy regarding ptt results. new order to stop heparin drip for 2 hours and restat it at 1000 units an hour. repeat ptt 6 hours after heparin restarted
[2020-03-18 05:28] LABS: POC Glucose,Bedside 283 (70-110)
[2020-03-18 07:20] LABS: ABG Base Excess -10.5 mmol/L (-2.4-2.3); ABG HCO3 17.2 mmhg (22.0-26.0); ABG Oxygen Saturation 94 % (90-100); ABG PCO2 43.2 mmhg (35.0-45.0); ABG PH 7.22 mmol/L (7.35-7.45); ABG PO2 76.2 mmhg (80-100); ABG TCO2 18.5 mmhg (23-27)
[2020-03-18 07:24] LABS: Oxygen 100 %; PEEP 20; Tidal Volume 420; Vent Rate 18
[2020-03-18 07:25] LABS: Allen's Test ACCEPTABLE; Source LRADIAL
[2020-03-18 07:32] LABS: Basophils # 0.1 K/mm3 (0-0.2); Basophils % 0.3 % (0.1-2.0); Hematocrit 36.7 % (42.0-52.0); Hemoglobin 11.8 g/dL (14.1-18.0); Lymphocytes # 0.9 K/mm3 (0.7-4.5); Lymphocytes % 4.7 % (10-50); Mean Corpuscular HGB Conc 32.2 g/dL (31.8-35.4); Mean Corpuscular Hemoglobin 32.3 pg (27.0-31.2); Mean Corpuscular Volume 100.1 fl (80-94); Mean Platelet Volume 10.5 fl (7.4-10.4); Monocytes # 0.8 K/mm3 (0.1-1.0); Monocytes % 4.3 % (1.7-9.3); Neutrophils # 17.1 K/mm3 (1.8-7.8); Neutrophils % 90.7 % (37.0-80.0); Platelet Count 347 K/mm3 (142-424); Red Blood Count 3.66 M/mm3 (4.60-6.20); Red Cell Distribution Width 13.6 % (11.5-17.5); White Blood Count 18.9 K/mm3 (4.8-10.8)
[2020-03-18 07:35] LABS: Alanine Aminotransferase 36 U/L (12-78); Albumin Level 2.5 g/dl (3.5-5.0); Albumin/Globulin Ratio 0.9 (1.1-1.8); Alkaline Phosphatase 50 U/L (38-126); Anion Gap 11.9 mEq/L (5-15); Aspartate Amino Transferase 80 U/L (17-59); Bilirubin,Total 0.3 mg/dl (0.2-1.3); Blood Urea Nitrogen 73 mg/dl (9-20); Calcium 7.9 mg/dl (8.4-10.2); Carbon Dioxide 21 mmol/L (22.0-30.0); Chloride 114 mmol/L (98-107); Creatinine Clearance Estimated 22 mL/min (50-200); Estimated Glomerular Filt Rate 17 ml/min (>60); GFR (African American) 20 ML/MIN (>60); Globulin 2.8 g/dL (1.3-3.2); Glucose 271 mg/dl (74-100); Potassium 4.9 mmoL/L (3.5-5.1); Sodium 142 mmol/L (136-145); Total Protein,Serum 5.3 g/dl (6.3-8.2)
--- NOTE | 2020-03-18 07:45 | HMH.PNCARD ---
Subjective Date: 03/18/20 Time: 07:45 Principal diagnosis: COVID pneumonia, A. fib Interval history: 75 yo WM in ICU sedated on vent. Still on Ridge at 100 mcg/min with SBP around 100 mm Hg Low dose diltiazem drip at 2.5 mg/hr Sinus rhythm on telemetry Exam Vital signs and Labs for Last 24 Hours: Temp Pulse Resp BP Pulse Ox 99.3 F 62 19 90/49 L 97 03/18/20 04:00 03/18/20 06:45 03/18/20 06:45 03/18/20 06:45 03/18/20 06:45 Laboratory Results - last 24 hr 03/17/20 08:28: Specimen Source Left radial, O2 % 100, ABG pH 7.38, ABG pCO2 26.4 L, ABG pO2 47.9 L, ABG HCO3 15.4 L, ABG Total CO2 16.2 L, ABG O2 Saturation 84 L*, ABG Base Excess -9.7 L, Lizandro Test Non applicable 03/17/20 10:50: Specimen Source Right brachial, O2 % 100, ABG pH 7.04 L*, ABG pCO2 44.3, ABG pO2 47.1 L, ABG HCO3 11.7 L, ABG Total CO2 13.1 L, ABG O2 Saturation 66 L*, ABG Base Excess -18.4 L 03/17/20 11:30: Urine Color Yellow, Urine Appearance Sl cloudy, Urine pH 5.5, Ur Specific [place] >= 1.030, Urine Protein 2+, Urine Glucose (UA) Negative, Urine Ketones Trace, Urine Blood Trace-i, Urine Nitrate Negative, Urine Bilirubin Negative, Urine Urobilinogen 0.2, Ur Leukocyte Esterase Negative, Urine RBC Occasional, Urine WBC None, Ur Squamous Epith Cells 20-50, Urine Bacteria None, Urine Sperm 3+ 03/17/20 12:21: POC Glucose 304 H* 03/17/20 13:14: Specimen Source L radial, O2 % 100, ABG pH 7.24 L*, ABG pCO2 34.4 L, ABG pO2 50.3 L, ABG HCO3 14.3 L, ABG Total CO2 15.3 L, ABG O2 Saturation 80 L*, ABG Base Excess -13.2 L, Lizandro Test Acceptable, Vent Rate 24, Tidal Volume 440, PEEP 12 01/13/21 14:56: Specimen Source L radial, O2 % 100, ABG pH 7.28 L, ABG pCO2 29.5 L, ABG pO2 47.5 L, ABG HCO3 13.5 L, ABG Total CO2 14.4 L, ABG O2 Saturation 79 L*, ABG Base Excess -13.2 L, Lizandro Test Acceptable, PEEP 12 03/17/20 16:10: APTT 35.4 H 03/17/20 16:31: POC Glucose 309 H* 03/17/20 17:00: Specimen Source Right brachial, O2 % 100, ABG pH 7.23 L*, ABG pCO2 43.2, ABG pO2 64.2 L, ABG HCO3 17.6 L, ABG Total CO2 19.0 L, ABG O2 Saturation 89 L, ABG Base Excess -9.5 L, Lizandro Test N/a, Vent Rate 18, Tidal Volume 420, PEEP 20 03/17/20 22:07: APTT 168.8 H* D 03/17/20 23:29: POC Glucose 384 H* 03/18/20 05:17: POC Glucose 283 H 03/18/20 07:09: Specimen Source Lradial, O2 % 100, ABG pH 7.22 L*, ABG pCO2 43.2, ABG pO2 76.2 L, ABG HCO3 17.2 L, ABG Total CO2 18.5 L, ABG O2 Saturation 94, ABG Base Excess -10.5 L, Lizandro Test Acceptable, Vent Rate 18, Tidal Volume 420, PEEP 20 I & O for Last 24 hours: Intake & Output 03/15/20 03/16/20 03/17/20 03/18/20 11:59 11:59 11:59 11:59 Intake Total 1803 / 1803 3815 / 3815 Output Total 600 / 600 278 / 278 Balance 1203 / 1203 3537 / 3537 Weight 177 lb 14.609 oz 181 lb 7.047 oz 195 lb 8.8 oz Microbiology Reports for the Last 24 Hours: Microbiology 03/16/20 01:25 Blood Blood Culture - Preliminary NO GROWTH AFTER 48 HOURS 03/16/20 01:25 Blood Blood Culture - Preliminary NO GROWTH AFTER 48 HOURS 03/17/20 10:48 Lung,Right Lower Lobe Gram Stain - Final Narrative: Not examined due to COVID infection. Progress Note: A&P (1) Atrial fibrillation with RVR Status: Acute Assessment and plan: Continue to control heart rate/rhythm with diltiazem as BP allows. On lovenox with elevated CHADS VASC score. (2) Elevated troponin Status: Acute Assessment and plan: Echo pending Elevated troponin felt due to cardiac strain from respiratory status. (3) Acute respiratory failure with hypoxia Status: Acute (4) Pneumonia due to 2019 novel coronavirus Status: Acute (5) COVID-19 virus detected Status: Acute (6) Obesity (BMI 30.0-34.9) Status: Acute (7) Hypertension Status: Chronic (8) Uncontrolled type 2 diabetes mellitus Status: Chronic (9) Acute renal failure Status: Acute Assessment and plan: Will stop lisinopril Low urine output (<50 ml ove
[2020-03-18 07:52] LABS: Free T4 (Free Thyroxine) 1.09 ng/dl (0.78-2.19)
[2020-03-18 08:06] LABS: Thyroid Stimulating Hormone 0.75 uIU/mL (0.465-4.68)
[2020-03-18 08:10] LABS: MANUAL DIFFERENTIAL MANUAL DIFFERENTIAL (MANUAL DIFF)
--- NOTE | 2020-03-18 08:10 | HMH.ACPN2 ---
Internal Medicine - PN: Subj *Date: 03/18/20 *Time: 08:10 Interval history: Remained fairly stable overnight with continued high vent settings. Continues on Ridge-Synephrine for blood pressure support and on IV Cardizem for new onset atrial fib although converted to normal sinus rhythm overnight. Urine output has been decreased. Exam Vital signs and Labs for Last 24 Hours: Temp Pulse Resp BP Pulse Ox 99.3 F 62 19 90/49 L 95 03/18/20 04:00 03/18/20 06:45 03/18/20 06:45 03/18/20 06:45 03/18/20 06:45 Laboratory Results - last 24 hr 03/17/20 12:21: POC Glucose 304 H* 03/17/20 14:56: Specimen Source L radial, O2 % 100, ABG pH 7.28 L, ABG pCO2 29.5 L, ABG pO2 47.5 L, ABG HCO3 13.5 L, ABG Total CO2 14.4 L, ABG O2 Saturation 79 L*, ABG Base Excess -13.2 L, Lizandro Test Acceptable, PEEP 12 03/17/20 16:10: APTT 35.4 H 03/17/20 16:31: POC Glucose 309 H* 03/17/20 17:00: Specimen Source Right brachial, O2 % 100, ABG pH 7.23 L*, ABG pCO2 43.2, ABG pO2 64.2 L, ABG HCO3 17.6 L, ABG Total CO2 19.0 L, ABG O2 Saturation 89 L, ABG Base Excess -9.5 L, Lizandro Test N/a, Vent Rate 18, Tidal Volume 420, PEEP 20 03/17/20 22:07: APTT 168.8 H* D 03/17/20 23:29: POC Glucose 384 H* 03/18/20 05:15: WBC 18.9 H D, RBC 3.66 L, Hgb 11.8 L, Hct 36.7 L, MCV 100.1 H, MCH 32.3 H, MCHC 32.2, RDW 13.6, Plt Count 347, MPV 10.5 H, Neut % (Auto) 90.7 H, Lymph % (Auto) 4.7 L, [place] % (Auto) 4.3, Eos % (Auto) 0.0 L, Baso % (Auto) 0.3, Neut # (Auto) 17.1 H, Lymph # (Auto) 0.9, [place] # (Auto) 0.8, Eos # (Auto) 0.0, Baso # (Auto) 0.1, Total Counted 100, Neutrophils % (Manual) 81 H, Lymphocytes % (Manual) 11, Monocytes % (Manual) 4, Eosinophils % (Manual) 4 H, Platelet Estimate Normal, Hypochromasia 1+, Macrocytosis 1+ 03/18/20 05:15: Sodium 142, Potassium 4.9, Chloride 114 H, Carbon Dioxide 21 L D, Anion Gap 11.9, BUN 73 H D, Creatinine 3.60 H D, Estimated Creat Clear 22, Estimated GFR 17 L*, Est GFR ( Amer) 20 L D, Glucose 271 H, Calcium 7.9 L, Total Bilirubin 0.3, AST 80 H, ALT 36, Alkaline Phosphatase 50, Total Protein 5.3 L, Albumin 2.5 L D, Globulin 2.8, Albumin/Globulin Ratio 0.9 L, TSH 0.75 03/18/20 05:15: Magnesium 2.0 03/18/20 05:15: Free T4 1.09 03/18/20 05:17: POC Glucose 283 H 03/18/20 07:09: Specimen Source Lradial, O2 % 100, ABG pH 7.22 L*, ABG pCO2 43.2, ABG pO2 76.2 L, ABG HCO3 17.2 L, ABG Total CO2 18.5 L, ABG O2 Saturation 94, ABG Base Excess -10.5 L, Lizandro Test Acceptable, Vent Rate 18, Tidal Volume 420, PEEP 20 03/18/20 09:30: APTT 168.2 H* 03/18/20 12:55: POC Glucose 219 H I & O for Last 24 hours: Intake & Output 03/16/20 03/17/20 03/18/20 03/19/20 11:59 11:59 11:59 11:59 Intake Total 1803 / 1803 3837.5 / 3837.5 Output Total 600 / 600 278 / 278 Balance 1203 / 1203 3559.5 / 3559.5 Weight 177 lb 14.609 oz 181 lb 7.047 oz 195 lb 8.8 oz Microbiology Reports for the Last 24 Hours: Microbiology 03/16/20 01:25 Blood Blood Culture - Preliminary NO GROWTH AFTER 48 HOURS 03/16/20 01:25 Blood Blood Culture - Preliminary NO GROWTH AFTER 48 HOURS 03/17/20 10:48 Lung,Right Lower Lobe Gram Stain - Final Narrative: He remains sedated on the vent. Chest with coarse breath sounds bilaterally, diminished in the bases. Heart is regular. Abdomen is protuberant but soft with diminished bowel sounds. Extremities no edema. Assessment and Plan (1) Atrial fibrillation with RVR Status: Acute Category: Medical Code(s): I48.91 - Unspecified atrial fibrillation (2) Elevated troponin Status: Acute Category: Medical Code(s): R77.8 - Other specified abnormalities of plasma proteins (3) Acute respiratory failure with hypoxia Status: Acute Category: Medical Code(s): J96.01 - Acute respiratory failure with hypoxia (4) Pneumonia due to 2019 novel coronavirus Status: Acute Category: Medical Code(s): U07.1 - COVID-19; J12.82 - Pneumonia due to coronavirus diseas
[2020-03-18 09:55] LABS: Eosinophils % 4 % (0-3); Lymphocytes % 11 % (10-50); Monocytes % 4 % (2-9); Neutrophils % 81 % (42-76); Platelet Estimate Normal; Total Cells Counted 100
[2020-03-18 09:56] LABS: Hypochromasia 1+; Macrocytosis 1+
[2020-03-18 10:52] LABS: Activated Partial Thrombo Time 168.2 seconds (23.6-34.0)
[2020-03-18 13:02] LABS: POC Glucose,Bedside 219 (70-110)
--- NOTE | 2020-03-18 13:34 | HMH.PULMPN ---
Internal Medicine - PN: Subj *Date: 03/18/20 *Time: 13:34 Interval history: Patient respiratory status remained critical and stable. No acute respiratory events overnight Exam - Constitutional Constitutional:: comfortable - HENMT Exam HENMT: normocephalic, atraumatic - Eye Exam Eyes:: eyelids normal, normal conjunctiva - Neck Exam Neck:: thyroid normal, no lymphadenopathy - Respiratory Exam Comments: Bilateral coarse breath sounds unchanged from yesterday. Patient intubated and sedated. Appears comfortable. - Cardiovascular Exam Cardiac:: S1, S2 - GI Exam GI:: soft, no hepatosplenomegaly - Skin Exam Skin: warm, no rash - Extremities Exam Extremities: no cyanosis, no clubbing, edema Assessment and Plan (1) Atrial fibrillation with RVR Status: Acute Category: Medical Code(s): I48.91 - Unspecified atrial fibrillation (2) Elevated troponin Status: Acute Category: Medical Code(s): R77.8 - Other specified abnormalities of plasma proteins (3) Acute respiratory failure with hypoxia Status: Acute Category: Medical Code(s): J96.01 - Acute respiratory failure with hypoxia (4) Pneumonia due to 2019 novel coronavirus Status: Acute Category: Medical Code(s): U07.1 - COVID-19; J12.82 - Pneumonia due to coronavirus disease 2019 (5) COVID-19 virus detected Status: Acute Category: Medical Code(s): U07.1 - COVID-19 (6) Obesity (BMI 30.0-34.9) Status: Acute Category: Medical Code(s): E66.9 - Obesity, unspecified (7) Hypertension Status: Chronic Category: Medical Code(s): I10 - Essential (primary) hypertension (8) Uncontrolled type 2 diabetes mellitus Status: Chronic Category: Medical Code(s): E11.65 - Type 2 diabetes mellitus with hyperglycemia (9) Acute renal failure Status: Acute Category: Medical Code(s): N17.9 - Acute kidney failure, unspecified - Assessment and plan all Dx Assessment and Plan for all problems:: # Acute hypoxic respiratory failure needing mechanical ventilation: # COVID-19 pneumonia: 75-year-old unknown smoking history, history of type 2 diabetes presented with COVID-19 and worsening respiratory failure. Patient respiratory status rapidly declined from admission eventually needing mechanical ventilation with inhalers post admission. Patient also had a code PEA status post ROSC after 3 cycles of CPR yesterday. Interval update: Patient continued to ceftriaxone azithromycin along with remdesivir and dexamethasone. Patient continued to be in pressors with phenylephrine, cardiology is following for his atrial fibrillation. Continue to receive phenylephrine, diltiazem and heparin drip. Patient respiratory status remained stable but critical on high vent settings with a 20 of PEEP. PEEP decreased to 18 this morning. ABG showed slightly improved oxygenation from yesterday however showed metabolic acidosis on ABG. Flow asynchrony corrected today Renal function continued to worsen with creatinine 3.6 today and a GFR of 17. We will stop remdesivir. BAL culture growing rare gram-positive cocci in pairs. Chest x-ray unchanged from yesterday. Patient respiratory status remained critically ill on high vent settings, poor lung compliance along with worsening creatinine and decreasing urine output make his prognosis guarded. Volume status net +3 L yesterday Plan: -Continue lung protective ventilation with mechanical ventilatory support, current settings include 100% FiO2, PEEP of 18, tidal volume of 420 and a rate of 18. -Continue ceftriaxone azithromycin for possible community-acquired pneumonia, will follow with BAL cultures -Continue dexamethasone for COVID-19 pneumonia. Remdesivir stopped -Continue heparin drip -DuoNebs every 6 hours scheduled -Continue pressor support to maintain a MAP goal of greater than 65, -F/U with cardiology recommendations and follow with echocardiogram report -Sedation and analgesics with a RASS goal of negative 2 to negative 3
[2020-03-18 15:49] LABS: POC Glucose,Bedside 227 (70-110)
--- NOTE | 2020-03-18 18:23 | PC.NURSE ---
Kangaroo pump not available. [employer] supervisor [employer] contacted for for orders for possible bolus feed v. cont. Left message for call back.
[2020-03-18 19:50] LABS: Activated Partial Thrombo Time 121.3 seconds (23.6-34.0)
--- NOTE | 2020-03-18 20:55 | PC.NURSE ---
1800 - Dr. Carrasquillo called to check on pt, made aware that pt had only had 28 cc of urine out this shift.
--- NOTE | 2020-03-18 21:25 | PC.NURSE ---
No acute changes this shift. Remains on [facility] vent, settings: AC 100%, 18, 420, 20.#7.5 ETT 24@ lip on (R) side. Lungs remain diminished throughout. Abdomen is large, soft,non-tender, round w/ hypoactive BS. OGT is clamped & @ 65 cm. No BM this shift. Mullins cath to drain @ bedside. Pt has only had 28 cc of urine out this shift, MD made aware. Turned and repositioned Q2H. Oral care provided. Minimal secretions w/ suctioning. Heparin gtt managed per pharmacy and titrated per their orders. Pt remains on JUDIE @ 100 mcg/min, Cardizem @ 2.5 mg/hr, Fentanyl @ 100 mcg/hr, Versed 0.1 mg/kg/hr. Report given to Esau Carbajal RN.
[2020-03-18 23:14] LABS: POC Glucose,Bedside 251 (70-110)
[2020-03-19] VITALS (32 sets, daily range): BP systolic 88–124; BP diastolic 44–64; PULSE 59–79; RESP 17–29; TEMP 35.6–37.1; O2SAT 59–99; BMI 32.1
--- NOTE | 2020-03-19 00:42 | PC.NURSE ---
refrained from bathing patient due to increased oxygen demand during activity. fio2 100 percent, peep of 18, rr 26.
[2020-03-19 03:40] LABS: Activated Partial Thrombo Time 101.1 seconds (23.6-34.0)
--- NOTE | 2020-03-19 03:43 | PC.NURSE ---
1999 received call from pharmacy decreased heparin drip to 600 unit/hr per ptt results
--- NOTE | 2020-03-19 03:44 | PC.NURSE ---
received call from pharmacy decreased heparin drip to 400 units/hr per ptt protocol
--- NOTE | 2020-03-19 05:14 | XR_ITS ---
PROCEDURE: XR CHEST PORTABLE CLINICAL HISTORY: resp failure Covid19 COMPARISON: CT CT CHEST WO CON from 03/16/2020 CR XR CHEST PORTABLE from 03/16/2020 CR XR CHEST PORTABLE from 03/17/2020 CR XR CHEST PORTABLE from 03/17/2020 FINDINGS: Endotracheal tube tip is in good position at the T3-T4 level. Nasogastric tube tip is not visible but is below the GE junction. Right IJ central venous line tip is in the region of SVC. There remains diffuse bilateral pneumonia in the right upper lobe right lower lobe and left lower lobe with some sparing of the left upper lobe. The pneumonia may be slightly worse in the left lung base. No acute bony abnormalities. IMPRESSION: Tubes and lines in good position. Diffuse bilateral pneumonia which may be slightly worse in the left lower lobe Dictated by: Lizandro Elena MD 03/19/2020 06:45 Lizandro Elena MD in [place] 03/19/2020 06:45
[2020-03-19 06:08] LABS: ABG Base Excess -15.4 mmol/L (-2.4-2.3); ABG HCO3 13.5 mmhg (22.0-26.0); ABG Oxygen Saturation 98 % (90-100); ABG PCO2 39.8 mmhg (35.0-45.0); ABG PO2 142.5 mmhg (80-100); ABG TCO2 14.7 mmhg (23-27); Oxygen 100 %; Tidal Volume 420
[2020-03-19 06:09] LABS: Allen's Test Patient Unable; PEEP 18; Source Left Radial; Vent Rate 18
[2020-03-19 06:10] LABS: ABG PH 7.15 mmol/L (7.35-7.45)
[2020-03-19 06:23] LABS: Basophils # 0.1 K/mm3 (0-0.2); Basophils % 0.8 % (0.1-2.0); Hematocrit 37.6 % (42.0-52.0); Hemoglobin 11.7 g/dL (14.1-18.0); Lymphocytes % 5.7 % (10-50); Mean Corpuscular Hemoglobin 31.6 pg (27.0-31.2); Mean Corpuscular Volume 102.1 fl (80-94); Mean Platelet Volume 9.7 fl (7.4-10.4); Monocytes # 0.8 K/mm3 (0.1-1.0); Monocytes % 4.8 % (1.7-9.3); Neutrophils # 15.6 K/mm3 (1.8-7.8); Neutrophils % 88.7 % (37.0-80.0); Platelet Count 330 K/mm3 (142-424); Red Blood Count 3.69 M/mm3 (4.60-6.20); Red Cell Distribution Width 14.1 % (11.5-17.5); White Blood Count 17.6 K/mm3 (4.8-10.8)
[2020-03-19 06:29] LABS: Alanine Aminotransferase 42 U/L (12-78); Albumin Level 2.3 g/dl (3.5-5.0); Albumin/Globulin Ratio 0.8 (1.1-1.8); Alkaline Phosphatase 61 U/L (38-126); Anion Gap 17.3 mEq/L (5-15); Aspartate Amino Transferase 119 U/L (17-59); Bilirubin,Total 0.3 mg/dl (0.2-1.3); Calcium 7.4 mg/dl (8.4-10.2); Carbon Dioxide 15 mmol/L (22.0-30.0); Chloride 115 mmol/L (98-107); Creatinine Clearance Estimated 16 mL/min (50-200); Estimated Glomerular Filt Rate 12 ml/min (>60); GFR (African American) 14 ML/MIN (>60); Globulin 2.9 g/dL (1.3-3.2); Glucose 288 mg/dl (74-100); Potassium 5.3 mmoL/L (3.5-5.1); Sodium 142 mmol/L (136-145); Total Protein,Serum 5.2 g/dl (6.3-8.2)
[2020-03-19 06:41] LABS: MANUAL DIFFERENTIAL MANUAL DIFFERENTIAL (MANUAL DIFF)
[2020-03-19 06:50] LABS: Blood Urea Nitrogen 86 mg/dl (9-20)
[2020-03-19 06:56] LABS: POC Glucose,Bedside 251 (70-110)
--- NOTE | 2020-03-19 08:36 | PC.NURSE ---
0609 received report of ph 7.15 from respiratory personnel .this result was then given to Omaira ,cali pts nurse
--- NOTE | 2020-03-19 08:39 | PC.NURSE ---
SBP 89. Phenyl gtt increased to 80mcg/min. Dr. Carrasquillo rounding and ordered to decrease NS to 50mL/hr.
--- NOTE | 2020-03-19 08:49 | HMH.ACPN2 ---
Internal Medicine - PN: Subj *Date: 03/19/20 *Time: 08:49 Interval history: No respiratory events overnight. Ridge-Synephrine further titrated due to hypotension. Urine output remains minimal with increasing creatinine and BUN. Exam Vital signs and Labs for Last 24 Hours: Temp Pulse Resp BP Pulse Ox 97.0 F L 60 20 98/54 L 97 03/19/20 07:00 03/19/20 07:00 03/19/20 07:00 03/19/20 07:00 03/19/20 07:00 Laboratory Results - last 24 hr 03/18/20 05:15: Total Counted 100, Neutrophils % (Manual) 81 H, Lymphocytes % (Manual) 11, Monocytes % (Manual) 4, Eosinophils % (Manual) 4 H, Platelet Estimate Normal, Hypochromasia 1+, Macrocytosis 1+ 03/18/20 05:15: Creatinine 3.60 H D 03/18/20 09:30: APTT 168.2 H* 03/18/20 12:55: POC Glucose 219 H 03/18/20 15:38: POC Glucose 227 H 03/18/20 19:03: APTT 121.3 H* D 03/18/20 23:05: POC Glucose 251 H 03/19/20 01:45: APTT 101.1 H* D 03/19/20 05:16: Specimen Source Left radial, O2 % 100, ABG pH 7.15 L*, ABG pCO2 39.8, ABG pO2 142.5 H, ABG HCO3 13.5 L, ABG Total CO2 14.7 L, ABG O2 Saturation 98, ABG Base Excess -15.4 L, Lizandro Test Patient unable, Vent Rate 18, Tidal Volume 420, PEEP 18 03/19/20 05:40: WBC 17.6 H, RBC 3.69 L, Hgb 11.7 L, Hct 37.6 L, MCV 102.1 H, MCH 31.6 H, MCHC 31.0 L, RDW 14.1, Plt Count 330, MPV 9.7, Neut % (Auto) 88.7 H, Lymph % (Auto) 5.7 L, [place] % (Auto) 4.8, Eos % (Auto) 0.0 L, Baso % (Auto) 0.8, Neut # (Auto) 15.6 H, Lymph # (Auto) 1.0, [place] # (Auto) 0.8, Eos # (Auto) 0.0, Baso # (Auto) 0.1 03/19/20 05:40: Sodium 142, Potassium 5.3 H, Chloride 115 H, Carbon Dioxide 15 L D, Anion Gap 17.3 H, BUN 86 H, Creatinine 4.90 H D, Estimated Creat Clear 16, Estimated GFR 12 L*, Est GFR ( Amer) 14 L* D, Glucose 288 H, Calcium 7.4 L, Total Bilirubin 0.3, AST 119 H D, ALT 42, Alkaline Phosphatase 61, Total Protein 5.2 L, Albumin 2.3 L, Globulin 2.9, Albumin/Globulin Ratio 0.8 L 03/19/20 06:19: POC Glucose 251 H I & O for Last 24 hours: Intake & Output 03/16/20 03/17/20 03/18/20 03/19/20 11:59 11:59 11:59 11:59 Intake Total 1803 / 1803 3837.5 / 3837.5 4338.167 / 4338.167 Output Total 600 / 600 278 / 278 51 / 51 Balance 1203 / 1203 3559.5 / 3559.5 4287.167 / 4287.167 Weight 177 lb 14.609 oz 181 lb 7.047 oz 195 lb 8.8 oz 204 lb 12.8 oz Microbiology Reports for the Last 24 Hours: Microbiology 03/17/20 13:00 Rectum CRE Surveillance Culture - Final Narrative: He is sedated on the ventilator. Breath sounds with coarse rales bilaterally and diminished in the bases. No wheezes. Heart is regular. Abdomen is slightly distended but soft. Extremities no edema. Assessment and Plan (1) Atrial fibrillation with RVR Status: Acute Category: Medical Code(s): I48.91 - Unspecified atrial fibrillation (2) Elevated troponin Status: Acute Category: Medical Code(s): R77.8 - Other specified abnormalities of plasma proteins (3) Acute respiratory failure with hypoxia Status: Acute Category: Medical Code(s): J96.01 - Acute respiratory failure with hypoxia (4) Pneumonia due to 2019 novel coronavirus Status: Acute Category: Medical Code(s): U07.1 - COVID-19; J12.82 - Pneumonia due to coronavirus disease 2019 (5) COVID-19 virus detected Status: Acute Category: Medical Code(s): U07.1 - COVID-19 (6) Obesity (BMI 30.0-34.9) Status: Acute Category: Medical Code(s): E66.9 - Obesity, unspecified (7) Hypertension Status: Chronic Category: Medical Code(s): I10 - Essential (primary) hypertension (8) Uncontrolled type 2 diabetes mellitus Status: Chronic Category: Medical Code(s): E11.65 - Type 2 diabetes mellitus with hyperglycemia (9) Acute renal failure Status: Acute Category: Medical Code(s): N17.9 - Acute kidney failure, unspecified - Assessment and plan all Dx Assessment and Plan for all problems:: Condition remains critical especially in light or worsening renal failure. Decrease IVFs. May need dialysis
[2020-03-19 09:14] LABS: Lymphocytes % 13 % (10-50); Monocytes % 8 % (2-9); Neutrophils % 79 % (42-76); Nucleated Red Blood Cells 2; Total Cells Counted 100
[2020-03-19 09:15] LABS: Macrocytosis 1+; Platelet Estimate PN
--- NOTE | 2020-03-19 09:27 | PC.NURSE ---
SBP 82. Phenyl gtt increased to 90mcg/min.
--- NOTE | 2020-03-19 09:45 | HMH.PNCARD ---
Subjective Date: 03/19/20 Time: 09:46 Principal diagnosis: COVID pneumonia, A. fib Interval history: 75-year-old white male in the ICU, sedated and on the ventilator. He remains on Ridge-Synephrine for blood pressure support. Urine output is minimal. Blood gas this a.m. shows pH of 7.15 Creatinine today is 4.9 and climbing Telemetry continues to show sinus rhythm. Patient is off of diltiazem drip. Exam Vital signs and Labs for Last 24 Hours: Temp Pulse Resp BP Pulse Ox 97.1 F L 63 18 95/50 L 94 L 03/19/20 09:00 03/19/20 09:00 03/19/20 09:00 03/19/20 09:00 03/19/20 09:00 Laboratory Results - last 24 hr 03/18/20 05:15: Total Counted 100, Neutrophils % (Manual) 81 H, Lymphocytes % (Manual) 11, Monocytes % (Manual) 4, Eosinophils % (Manual) 4 H, Platelet Estimate Normal, Hypochromasia 1+, Macrocytosis 1+ 03/18/20 09:30: APTT 168.2 H* 03/18/20 12:55: POC Glucose 219 H 03/18/20 15:38: POC Glucose 227 H 03/18/20 19:03: APTT 121.3 H* D 03/18/20 23:05: POC Glucose 251 H 03/19/20 01:45: APTT 101.1 H* D 03/19/20 05:16: Specimen Source Left radial, O2 % 100, ABG pH 7.15 L*, ABG pCO2 39.8, ABG pO2 142.5 H, ABG HCO3 13.5 L, ABG Total CO2 14.7 L, ABG O2 Saturation 98, ABG Base Excess -15.4 L, Lizandro Test Patient unable, Vent Rate 18, Tidal Volume 420, PEEP 18 03/19/20 05:40: WBC 17.6 H, RBC 3.69 L, Hgb 11.7 L, Hct 37.6 L, MCV 102.1 H, MCH 31.6 H, MCHC 31.0 L, RDW 14.1, Plt Count 330, MPV 9.7, Neut % (Auto) 88.7 H, Lymph % (Auto) 5.7 L, [place] % (Auto) 4.8, Eos % (Auto) 0.0 L, Baso % (Auto) 0.8, Neut # (Auto) 15.6 H, Lymph # (Auto) 1.0, [place] # (Auto) 0.8, Eos # (Auto) 0.0, Baso # (Auto) 0.1, Total Counted 100, Neutrophils % (Manual) 79 H, Lymphocytes % (Manual) 13, Monocytes % (Manual) 8, Nucleated RBCs 2, Platelet Estimate Pn, Macrocytosis 1+ 03/19/20 05:40: Sodium 142, Potassium 5.3 H, Chloride 115 H, Carbon Dioxide 15 L D, Anion Gap 17.3 H, BUN 86 H, Creatinine 4.90 H D, Estimated Creat Clear 16, Estimated GFR 12 L*, Est GFR ( Amer) 14 L* D, Glucose 288 H, Calcium 7.4 L, Total Bilirubin 0.3, AST 119 H D, ALT 42, Alkaline Phosphatase 61, Total Protein 5.2 L, Albumin 2.3 L, Globulin 2.9, Albumin/Globulin Ratio 0.8 L 03/19/20 06:19: POC Glucose 251 H I & O for Last 24 hours: Intake & Output 03/16/20 03/17/20 03/18/20 03/19/20 11:59 11:59 11:59 11:59 Intake Total 1803 / 1803 3837.5 / 3837.5 4338.167 / 4338.167 Output Total 600 / 600 278 / 278 56 / 56 Balance 1203 / 1203 3559.5 / 3559.5 4282.167 / 4282.167 Weight 177 lb 14.609 oz 181 lb 7.047 oz 195 lb 8.8 oz 204 lb 12.8 oz Microbiology Reports for the Last 24 Hours: Microbiology 03/17/20 13:00 Rectum CRE Surveillance Culture - Final Narrative: Not examined. Progress Note: A&P (1) Atrial fibrillation with RVR Status: Acute Assessment and plan: Currently maintaining sinus rhythm off diltiazem drip. He continues on heparin drip. (2) Elevated troponin Status: Acute Assessment and plan: Ejection fraction normal on echocardiogram this admission. Elevated troponin felt secondary to respiratory issues with right heart strain. (3) Acute respiratory failure with hypoxia Status: Acute (4) Pneumonia due to 2019 novel coronavirus Status: Acute (5) COVID-19 virus detected Status: Acute (6) Obesity (BMI 30.0-34.9) Status: Acute (7) Hypertension Status: Chronic (8) Uncontrolled type 2 diabetes mellitus Status: Chronic (9) Acute renal failure Status: Acute Assessment and Plan for All Diagnoses:: See above. No plans for further work-up at this time.
--- NOTE | 2020-03-19 10:41 | US_ITS ---
PROCEDURE: US ABDOMEN COMPLETE CLINICAL INDICATION: shock COMPARISON: No exams were available for comparison FINDINGS: PANCREAS: Pancreas is not well delineated due to overlying bowel gas. CT or MRI without and with contrast with pancreatic protocol may provide further evaluation if clinically desired. LIVER: No focal liver lesions demonstrated. Homogeneous echogenicity. No intrahepatic biliary ductal dilatation evident. There is appropriate direction of blood flow within a non dilated portal vein RIGHT KIDNEY: Cortical thinning . No hydronephrosis LEFT KIDNEY:. Cortical thinning. . No hydronephrosis GALLBLADDER: No gallstones, gallbladder wall thickening, pericholecystic fluid, or biliary dilatation. AORTA: No evidence of aneurysmal dilatation. SPLEEN: Spleen is poorly demonstrated. ASCITES: Not well delineated due to overlying bowel gas IMPRESSION: Exam is somewhat limited perform by portable technique with patient on ventilator. The liver and gallbladder have an unremarkable appearance. There is cortical thinning of the kidneys but no hydronephrosis. The aorta pancreas and spleen are not well delineated. Dictated by: Lizandro Elena MD 03/19/2020 14:15 Lizandro Elena MD in [place] 03/19/2020 14:15
--- NOTE | 2020-03-19 10:52 | HMH.ACPN ---
Internal Medicine - PN: Subj *Date: 03/19/20 *Time: 10:52 Exam Vital signs and Labs for Last 24 Hours: Temp Pulse Resp BP Pulse Ox 97.0 F L 66 18 95/57 L 97 03/19/20 10:00 03/19/20 10:00 03/19/20 10:00 03/19/20 10:00 03/19/20 10:00 Laboratory Results - last 24 hr 03/18/20 09:30: APTT 168.2 H* 03/18/20 12:55: POC Glucose 219 H 03/18/20 15:38: POC Glucose 227 H 03/18/20 19:03: APTT 121.3 H* D 03/18/20 23:05: POC Glucose 251 H 03/19/20 01:45: APTT 101.1 H* D 03/19/20 05:16: Specimen Source Left radial, O2 % 100, ABG pH 7.15 L*, ABG pCO2 39.8, ABG pO2 142.5 H, ABG HCO3 13.5 L, ABG Total CO2 14.7 L, ABG O2 Saturation 98, ABG Base Excess -15.4 L, Lizandro Test Patient unable, Vent Rate 18, Tidal Volume 420, PEEP 18 03/19/20 05:40: WBC 17.6 H, RBC 3.69 L, Hgb 11.7 L, Hct 37.6 L, MCV 102.1 H, MCH 31.6 H, MCHC 31.0 L, RDW 14.1, Plt Count 330, MPV 9.7, Neut % (Auto) 88.7 H, Lymph % (Auto) 5.7 L, [place] % (Auto) 4.8, Eos % (Auto) 0.0 L, Baso % (Auto) 0.8, Neut # (Auto) 15.6 H, Lymph # (Auto) 1.0, [place] # (Auto) 0.8, Eos # (Auto) 0.0, Baso # (Auto) 0.1, Total Counted 100, Neutrophils % (Manual) 79 H, Lymphocytes % (Manual) 13, Monocytes % (Manual) 8, Nucleated RBCs 2, Platelet Estimate Pn, Macrocytosis 1+ 03/19/20 05:40: Sodium 142, Potassium 5.3 H, Chloride 115 H, Carbon Dioxide 15 L D, Anion Gap 17.3 H, BUN 86 H, Creatinine 4.90 H D, Estimated Creat Clear 16, Estimated GFR 12 L*, Est GFR ( Amer) 14 L* D, Glucose 288 H, Calcium 7.4 L, Total Bilirubin 0.3, AST 119 H D, ALT 42, Alkaline Phosphatase 61, Total Protein 5.2 L, Albumin 2.3 L, Globulin 2.9, Albumin/Globulin Ratio 0.8 L 03/19/20 06:19: POC Glucose 251 H I & O for Last 24 hours: Intake & Output 03/16/20 03/17/20 03/18/20 03/19/20 23:59 23:59 23:59 23:59 Intake Total 180 / 180 3703 / 3943 5121.5 / 5241.5 974.167 / 974.167 Output Total 200 / 200 670 / 673 55 / 57 9 / 9 Balance -20 / -20 3033 / 3270 5066.5 / 5184.5 965.167 / 965.167 Weight 80.7 kg 82 kg 88.7 kg 92.896 kg Microbiology Reports for the Last 24 Hours: Microbiology 03/17/20 13:00 Rectum CRE Surveillance Culture - Final Assessment and Plan (1) Atrial fibrillation with RVR Status: Acute Category: Medical Code(s): I48.91 - Unspecified atrial fibrillation (2) Elevated troponin Status: Acute Category: Medical Code(s): R77.8 - Other specified abnormalities of plasma proteins (3) Acute respiratory failure with hypoxia Status: Acute Category: Medical Code(s): J96.01 - Acute respiratory failure with hypoxia (4) Pneumonia due to 2019 novel coronavirus Status: Acute Category: Medical Code(s): U07.1 - COVID-19; J12.82 - Pneumonia due to coronavirus disease 2019 (5) COVID-19 virus detected Status: Acute Category: Medical Code(s): U07.1 - COVID-19 (6) Obesity (BMI 30.0-34.9) Status: Acute Category: Medical Code(s): E66.9 - Obesity, unspecified (7) Hypertension Status: Chronic Category: Medical Code(s): I10 - Essential (primary) hypertension (8) Uncontrolled type 2 diabetes mellitus Status: Chronic Category: Medical Code(s): E11.65 - Type 2 diabetes mellitus with hyperglycemia (9) Acute renal failure Status: Acute Category: Medical Code(s): N17.9 - Acute kidney failure, unspecified The patient's infection will respond to the chosen ABx?: Yes (EMPIRIC THERAPY) Is the patient receiving the right drug, dose, and route?: Yes Could a more targeted ABx be ordered?: No (CULTURES PENDING)
[2020-03-19 10:59] LABS: Lipase 66 U/L (23-300)
[2020-03-19 11:30] LABS: Activated Partial Thrombo Time 56.9 seconds (23.6-34.0)
[2020-03-19 11:41] LABS: POC Glucose,Bedside 273 (70-110)
--- NOTE | 2020-03-19 12:34 | PC.NURSE ---
BP 88/51. Phenyl gtt increased to 100mcg/min.
--- NOTE | 2020-03-19 12:50 | PC.NURSE ---
received call from [place] [facility] to increase Heparin to 500units/hr and to repeat PTT @ 1900.
--- NOTE | 2020-03-19 14:18 | HMH.PULMPN ---
Internal Medicine - PN: Subj *Date: 03/19/20 *Time: 14:18 Interval history: Patient respiratory status remained stable since yesterday, however noted to have worsening renal function and worsening metabolic acidosis. Exam - Constitutional Constitutional:: comfortable - HENMT Exam HENMT: normocephalic, atraumatic - Eye Exam Eyes:: eyelids normal, normal conjunctiva - Neck Exam Neck:: thyroid normal, no lymphadenopathy - Respiratory Exam Comments: Bilateral coarse breath sounds unchanged from yesterday. Intubated and sedated. Appears comfortable. - Cardiovascular Exam Cardiac:: S1, S2 - GI Exam GI:: soft, no hepatosplenomegaly - Skin Exam Skin: warm - Neurological Exam Intubated and sedated. Appears comfortable. - Extremities Exam Extremities: no cyanosis, no clubbing, edema Assessment and Plan (1) Atrial fibrillation with RVR Status: Acute Category: Medical Code(s): I48.91 - Unspecified atrial fibrillation (2) Elevated troponin Status: Acute Category: Medical Code(s): R77.8 - Other specified abnormalities of plasma proteins (3) Acute respiratory failure with hypoxia Status: Acute Category: Medical Code(s): J96.01 - Acute respiratory failure with hypoxia (4) Pneumonia due to 2019 novel coronavirus Status: Acute Category: Medical Code(s): U07.1 - COVID-19; J12.82 - Pneumonia due to coronavirus disease 2019 (5) COVID-19 virus detected Status: Acute Category: Medical Code(s): U07.1 - COVID-19 (6) Obesity (BMI 30.0-34.9) Status: Acute Category: Medical Code(s): E66.9 - Obesity, unspecified (7) Hypertension Status: Chronic Category: Medical Code(s): I10 - Essential (primary) hypertension (8) Uncontrolled type 2 diabetes mellitus Status: Chronic Category: Medical Code(s): E11.65 - Type 2 diabetes mellitus with hyperglycemia (9) Acute renal failure Status: Acute Category: Medical Code(s): N17.9 - Acute kidney failure, unspecified - Assessment and plan all Dx Assessment and Plan for all problems:: # Acute hypoxic respiratory failure needing mechanical ventilation: # COVID-19 pneumonia: #Septic shock 75-year-old unknown smoking history, history of type 2 diabetes presented with COVID-19 and worsening respiratory failure. Patient respiratory status rapidly declined from admission eventually needing mechanical ventilation with inhalers post admission. Patient also had a code PEA status post ROSC after 3 cycles of CPR yesterday. Interval update: Patient respiratory status remained stable from yesterday, oxygenation improved to 142.5 today on ABG. Chest x-ray showed worsening infiltrates. Patient overall or appear to be volume overloaded. PEEP decreased to 16 Patient has worsening renal function with worsening creatinine along with worsening metabolic acidosis. Patient had urine output of only 55 cc in the last 24 hours. Patient continued to receive ceftriaxone and azithromycin for antibiotic coverage. Patient also receiving heparin, APTT not controlled, pharmacy following the dose. Plan: - Lasix 160 mg IV once - Initiate Bicarb Drip at 50 ml/hr - Lipase, right upper quadrant and renal ultrasound -Continue lung protective ventilation with mechanical ventilatory support -Continue ceftriaxone azithromycin for possible community-acquired pneumonia, will follow with BAL cultures -Continue dexamethasone for COVID-19 pneumonia. Remdesivir stopped -Continue heparin drip -DuoNebs every 6 hours scheduled -Continue pressor support to maintain a MAP goal of greater than 65, -F/U with cardiology recommendations and follow with echocardiogram report -Sedation and analgesics with a RASS goal of negative 2 to negative 3, on the CPOT of 0, will aim for deep sedation. Total critical care time spent on this patient throughout today is 45 minutes managing acute hypoxic respiratory failure needing mechanical ventilation. This time spent include reviewing te
--- NOTE | 2020-03-19 15:00 | PC.NURSE ---
right radial arterial line placed by Dr. Jain
--- NOTE | 2020-03-19 15:41 | P.PCN_ITS ---
[facility] Procedure Note Procedure Note:: Procedure: Right radial arterial line (20G) Indication: Need for continuous blood pressure monitoring and need for repeated arterial blood gases Prep: Chlorhexidine Description: After informed consent was obtained the patient was maintained in a supine position. His right wrist was prepped and draped in a sterile fashion. Radial pulsation was diminished bilaterally. The decision was made to proceed on the right as the left had been utilized for multiple ABG sticks . Utilizing the radial arterial line kit, a 20-gauge Angiocath was placed in the right radial artery and secured with silk suture. Appropriate waveform confirmed. Estimated blood loss: 1 mL Complications: No immediate.
--- NOTE | 2020-03-19 16:37 | PC.NURSE ---
SBP 118. Phenyl gtt decreased to 90mcg/min. Arterial line noted.
[2020-03-19 17:19] LABS: POC Glucose,Bedside 233 (70-110)
--- NOTE | 2020-03-19 17:20 | PC.NURSE ---
SBP 118. Phenyl gtt decreased to 80mcg/min.
--- NOTE | 2020-03-19 18:14 | PC.NURSE ---
BP 117/46 per art line. Phenyl gtt decreased to 70mcg/min.
[2020-03-19 19:30] LABS: Activated Partial Thrombo Time 47.5 seconds (23.6-34.0)
--- NOTE | 2020-03-19 19:42 | PC.NURSE ---
Spoke with Godfrey Quesada in pharmacy. Increase Heparin gtt to 700 units/hr.
[2020-03-19 21:00] LABS: POC Glucose,Bedside 261 (70-110)
--- NOTE | 2020-03-19 21:20 | PC.NURSE ---
Warm blankets placed on Pt during 1999 round due to low rectal temp of 96.1
[2020-03-20] VITALS (30 sets, daily range): BP systolic 89–128; BP diastolic 42–64; PULSE 60–114; RESP 16–29; TEMP 36.1–37.3; O2SAT 90–98; BMI 35.2
--- NOTE | 2020-03-20 01:27 | PC.NURSE ---
Pulmocare feedings increased from 20 ml/hr to 30 ml/hr. Pt tolerating. Residual was 30 ml.
[2020-03-20 02:46] LABS: Activated Partial Thrombo Time 64.7 seconds (23.6-34.0)
--- NOTE | 2020-03-20 03:01 | PC.NURSE ---
Spoke with Godfrey Quesada in pharmacy. No changes to Heparin gtt.
[2020-03-20 04:18] LABS: ABG Base Excess -16.6 mmol/L (-2.4-2.3); ABG HCO3 12.9 mmhg (22.0-26.0); ABG Oxygen Saturation 93 % (90-100); ABG PCO2 41.2 mmhg (35.0-45.0); ABG PO2 75.7 mmhg (80-100); ABG TCO2 14.1 mmhg (23-27)
[2020-03-20 04:19] LABS: Allen's Test Patient Unable; Oxygen 100 %; PEEP 16; Tidal Volume 420; Vent Rate 18
[2020-03-20 04:20] LABS: ABG PH 7.11 mmol/L (7.35-7.45)
[2020-03-20 06:27] LABS: POC Glucose,Bedside 389 (70-110)
[2020-03-20 06:38] LABS: Basophils # 0.1 K/mm3 (0-0.2); Basophils % 0.5 % (0.1-2.0); Eosinophils % 0.1 % (0.1-12.0); Hematocrit 37.2 % (42.0-52.0); Hemoglobin 11.3 g/dL (14.1-18.0); Lymphocytes # 1.1 K/mm3 (0.7-4.5); Lymphocytes % 5.3 % (10-50); Mean Corpuscular HGB Conc 30.3 g/dL (31.8-35.4); Mean Corpuscular Hemoglobin 31.7 pg (27.0-31.2); Mean Corpuscular Volume 104.5 fl (80-94); Mean Platelet Volume 9.9 fl (7.4-10.4); Monocytes # 1.1 K/mm3 (0.1-1.0); Monocytes % 5.3 % (1.7-9.3); Neutrophils # 17.8 K/mm3 (1.8-7.8); Neutrophils % 88.9 % (37.0-80.0); Platelet Count 341 K/mm3 (142-424); Red Blood Count 3.56 M/mm3 (4.60-6.20); Red Cell Distribution Width 14.4 % (11.5-17.5)
[2020-03-20 06:44] LABS: Alanine Aminotransferase 39 U/L (12-78); Albumin Level 2.1 g/dl (3.5-5.0); Albumin/Globulin Ratio 0.8 (1.1-1.8); Alkaline Phosphatase 67 U/L (38-126); Anion Gap 17.6 mEq/L (5-15); Aspartate Amino Transferase 98 U/L (17-59); Bilirubin,Total 0.3 mg/dl (0.2-1.3); Calcium 7.2 mg/dl (8.4-10.2); Carbon Dioxide 15 mmol/L (22.0-30.0); Chloride 116 mmol/L (98-107); Creatinine Clearance Estimated 16 mL/min (50-200); Estimated Glomerular Filt Rate 9 ml/min (>60); GFR (African American) 11 ML/MIN (>60); Globulin 2.7 g/dL (1.3-3.2); Glucose 369 mg/dl (74-100); Potassium 5.6 mmoL/L (3.5-5.1); Sodium 143 mmol/L (136-145); Total Protein,Serum 4.8 g/dl (6.3-8.2)
[2020-03-20 06:46] LABS: Blood Urea Nitrogen 98 mg/dl (9-20)
[2020-03-20 06:52] LABS: MANUAL DIFFERENTIAL MANUAL DIFFERENTIAL (MANUAL DIFF)
--- NOTE | 2020-03-20 07:37 | PC.NURSE ---
Vent settings unchanged and are as follows: AC, FiO2 100%, TV 420, R 18, PEEP 16. Medications administered per may.Pulmocare indusing @ 30 ml/hr at this time. BS w/ Bicarb @ 50 ml/hr, Ridge Gtt was titrated to 80 mcg/min. Pt has had some episodes of hypotension this AM. Fentanyl was titrated from 100 mcg/hr to 75 mcg/hr. Versed @ 0.1 mg/kg/hr. Pt has had 3 ml urine output per F/C this shift. Critical labs called to this AM. No new orders at this time. Will continue to monitor.
--- NOTE | 2020-03-20 08:56 | HMH.PHAHEP ---
[facility] Pharmacy Heparin Dosing - Demographic Data Admission date:: 03/16/20 Date: 03/17/20 Time: 16:30 Allergies/Adverse Reactions: Allergies Allergy/AdvReac Type Severity Reaction Status Date / Time No Known Allergies Allergy Verified 12/26/18 19:28 Height: 1.7 m Weight: 82 kg - Indication Medication therapy:: Heparin Current Indications:: SUSPECTED PE Patient Problems: Current Active Problems Pneumonia due to 2019 novel coronavirus (Acute) COVID-19 virus detected (Acute) Obesity (BMI 30.0-34.9) (Acute) Cholelithiasis (Acute) Diabetes mellitus, insulin dependent (IDDM), controlled (Acute) Acute respiratory failure with hypoxia (Acute) Hypertension (Chronic) Uncontrolled type 2 diabetes mellitus (Chronic) Atrial fibrillation with RVR (Acute) Elevated troponin (Acute) Acute renal failure (Acute) Metabolic acidosis (Acute) CVA?: No Bleeding problem?: No Kidney disease?: No OK?: No Desired PTT range:: 60-80 seconds - Labs Anticoagulation Lab Results:: 03/20/20 05:45 Hgb 11.3 L Hct 37.2 L Plt Count 341 - Monitoring Dose Monitor 1 Date: 03/17/20 Time: 16:10 PTT Result:: 35.4 Infusion Rate:: 1300 UNITS/HR = 26 ML/HR Comment:: BASELINE PTT [id number] Dose Monitor 2 Date: 03/17/20 Time: 22:00 PTT Result:: 168.8 Infusion Rate:: STOP HEPARIN FOR 2 HOURS, THEN RESTART AT 1000 UNIT/HR Dose Monitor 3 Date: 03/18/20 Time: 06:00 PTT Result:: 168.2 Infusion Rate:: STOP HEPARIN FOR 2 HOURS, THEN RESTART AT 800 UNITS/HR Comment:: APU=[id number] Dose Monitor 4 Date: 03/18/20 Time: 19:00 PTT Result:: 121.3 Infusion Rate:: DECREASE TO 600 UNITS/HR = 12 ML/HR Dose Monitor 5 Date: 03/19/20 Time: 01:45 PTT Result:: 101.1 Infusion Rate:: DECREASE TO 400 UNITS/HR = 8 ML/HR Dose Monitor 6 Date: 03/19/20 Time: 09:45 PTT Result:: 56.9 Infusion Rate:: INCREASE TO 500 UNITS/HR = 10 ML/HR Comment:: [id number] Dose Monitor 7 Date: 03/19/20 Time: 19:00 PTT Result:: 47.5 Infusion Rate:: INCREASE TO 700 UNITS/HR = 14 ML/HR Dose Monitor 8 Date: 03/20/20 Time: 02:05 PTT Result:: 64.7 Infusion Rate:: 700 UNITS/HR = 14 ML/HR Dose Monitor 9 Date: 03/20/20 Time: 09:00 PTT Result:: 63.8 Infusion Rate:: 700 UNITS/HR = 14 ML/HR Dose Monitor 10 Date: 03/20/20 Time: 20:00 PTT Result:: 63.5 Infusion Rate:: 700 UNITS/HR = 14 ML/HR Dose Monitor 11 Date: 03/21/20 Time: 06:30 PTT Result:: 57.5 Infusion Rate:: 700 UNITS/HR = 14 ML/HR Dose Monitor 12 Date: 03/22/20 Time: 07:00 PTT Result:: PATIENT - Core Measures Is INR > or = 2 at discharge?: No Most Recent Labs:: Laboratory Results - last 24 hr 03/19/20 05:40: Total Counted 100, Neutrophils % (Manual) 79 H, Lymphocytes % (Manual) 13, Monocytes % (Manual) 8, Nucleated RBCs 2, Platelet Estimate Pn, Macrocytosis 1+ 03/19/20 05:40: Lipase 66 03/19/20 10:20: APTT 56.9 H* D 03/19/20 11:32: POC Glucose 273 H 03/19/20 17:09: POC Glucose 233 H 03/19/20 19:00: APTT 47.5 H D 03/19/20 20:36: POC Glucose 261 H 03/20/20 02:05: APTT 64.7 H* D 03/20/20 04:03: Specimen Source art line, O2 % 100, ABG pH 7.11 L*, ABG pCO2 41.2, ABG pO2 75.7 L, ABG HCO3 12.9 L, ABG Total CO2 14.1 L, ABG O2 Saturation 93, ABG Base Excess -16.6 L, Lizandro Test Patient unable, Vent Rate 18, Tidal Volume 420, PEEP 16 03/20/20 05:45: WBC 20.0 H, RBC 3.56 L, Hgb 11.3 L, Hct 37.2 L, MCV 104.5 H, MCH 31.7 H, MCHC 30.3 L, RDW 14.4, Plt Count 341, MPV 9.9, Neut % (Auto) 88.9 H, Lymph % (Auto) 5.3 L, [place] % (Auto) 5.3, Eos % (Auto) 0.1, Baso % (Auto) 0.5, Neut # (Auto) 17.8 H, Lymph # (Auto) 1.1, [place] # (Auto) 1.1 H, Eos # (Auto) 0.0, Baso # (Auto) 0.1 03/20/20 05:45: Sodium 143, Potassium 5.6 H, Chloride 116 H, Carbon Dioxide 15 L, Anion Gap 17.6 H, BUN 98 H, Creatinine 5.90 H D, Estimated Creat Clear 16, Estimated GFR 9
[2020-03-20 09:19] LABS: Lymphocytes % 4 % (10-50); Monocytes % 7 % (2-9); Neutrophils % 89 % (42-76); Nucleated Red Blood Cells 2; Total Cells Counted 100
[2020-03-20 09:20] LABS: Macrocytosis 1+; Platelet Estimate Normal
--- NOTE | 2020-03-20 09:30 | HMH.ACPN2 ---
Internal Medicine - PN: Subj *Date: 03/20/20 *Time: 09:30 Interval history: Events the past 24 hours reviewed. No new respiratory issues. Art line was placed yesterday. He continues on Ridge-Synephrine for blood pressure support. He was started on bicarb drip yesterday but metabolic acidosis persists. Renal function continues to decline. Urine output has been essentially nil overnight. Exam Vital signs and Labs for Last 24 Hours: Temp Pulse Resp BP Pulse Ox 98.6 F 86 25 H 110/49 L 95 03/20/20 09:00 03/20/20 09:00 03/20/20 09:00 03/20/20 09:00 03/20/20 09:00 Laboratory Results - last 24 hr 03/19/20 05:40: Lipase 66 03/19/20 10:20: APTT 56.9 H* D 03/19/20 11:32: POC Glucose 273 H 03/19/20 17:09: POC Glucose 233 H 03/19/20 19:00: APTT 47.5 H D 03/19/20 20:36: POC Glucose 261 H 03/20/20 02:05: APTT 64.7 H* D 03/20/20 04:03: Specimen Source art line, O2 % 100, ABG pH 7.11 L*, ABG pCO2 41.2, ABG pO2 75.7 L, ABG HCO3 12.9 L, ABG Total CO2 14.1 L, ABG O2 Saturation 93, ABG Base Excess -16.6 L, Lizandro Test Patient unable, Vent Rate 18, Tidal Volume 420, PEEP 16 03/20/20 05:45: WBC 20.0 H, RBC 3.56 L, Hgb 11.3 L, Hct 37.2 L, MCV 104.5 H, MCH 31.7 H, MCHC 30.3 L, RDW 14.4, Plt Count 341, MPV 9.9, Neut % (Auto) 88.9 H, Lymph % (Auto) 5.3 L, [place] % (Auto) 5.3, Eos % (Auto) 0.1, Baso % (Auto) 0.5, Neut # (Auto) 17.8 H, Lymph # (Auto) 1.1, [place] # (Auto) 1.1 H, Eos # (Auto) 0.0, Baso # (Auto) 0.1, Total Counted 100, Neutrophils % (Manual) 89 H, Lymphocytes % (Manual) 4 L, Monocytes % (Manual) 7, Nucleated RBCs 2, Platelet Estimate Normal, Macrocytosis 1+ 03/20/20 05:45: Sodium 143, Potassium 5.6 H, Chloride 116 H, Carbon Dioxide 15 L, Anion Gap 17.6 H, BUN 98 H, Creatinine 5.90 H D, Estimated Creat Clear 16, Estimated GFR 9 L*, Est GFR ( Amer) 11 L* D, Glucose 369 H, Calcium 7.2 L, Total Bilirubin 0.3, AST 98 H, ALT 39, Alkaline Phosphatase 67, Total Protein 4.8 L, Albumin 2.1 L, Globulin 2.7, Albumin/Globulin Ratio 0.8 L 03/20/20 06:07: POC Glucose 389 H* I & O for Last 24 hours: Intake & Output 03/17/20 03/18/20 03/19/20 03/20/20 11:59 11:59 11:59 11:59 Intake Total 1803 / 1803 3837.5 / 3837.5 4338.167 / 4338.167 5936.167 / 5936.167 Output Total 600 / 600 278 / 278 56 / 56 Balance 1203 / 1203 3559.5 / 3559.5 4282.167 / 4282.167 5921.167 / 5921.167 Weight 181 lb 7.047 oz 195 lb 8.8 oz 204 lb 12.8 oz 180 lb 12.465 oz Microbiology Reports for the Last 24 Hours: Microbiology 03/17/20 10:48 Lung,Right Lower Lobe Gram Stain - Final 03/17/20 10:48 Lung,Right Lower Lobe Bronchial Aspirate Culture - Preliminary Narrative: He is sedated on the ventilator. Vent settings: FiO2 100%, tidal volume 420, rate 18, PEEP 16. Breath sounds are diminished with coarse rales and rhonchi bilaterally. Abdomen is slightly distended but soft. Trace edema in extremities. Assessment and Plan (1) Atrial fibrillation with RVR Status: Acute Category: Medical Code(s): I48.91 - Unspecified atrial fibrillation (2) Elevated troponin Status: Acute Category: Medical Code(s): R77.8 - Other specified abnormalities of plasma proteins (3) Acute respiratory failure with hypoxia Status: Acute Category: Medical Code(s): J96.01 - Acute respiratory failure with hypoxia (4) Pneumonia due to 2019 novel coronavirus Status: Acute Category: Medical Code(s): U07.1 - COVID-19; J12.82 - Pneumonia due to coronavirus disease 2019 (5) COVID-19 virus detected Status: Acute Category: Medical Code(s): U07.1 - COVID-19 (6) Obesity (BMI 30.0-34.9) Status: Acute Category: Medical Code(s): E66.9 - Obesity, unspecified (7) Hypertension Status: Chronic Category: Medical Code(s): I10 - Essential (primary) hypertension (8) Uncontrolled type 2 diabetes mellitus Status: Chronic Category: Medical Code(s): E11.65 - Type 2 diabetes mellitus with hyperglycemia (9) Acute renal failure Status:
--- NOTE | 2020-03-20 09:58 | HMH.PULMPN ---
Internal Medicine - PN: Subj *Date: 03/20/20 *Time: 11:07 Interval history: No acute respiratory events overnight patient respiratory status remained critical. Exam - Constitutional Constitutional:: comfortable - HENMT Exam HENMT: atraumatic - Eye Exam Eyes:: eyelids normal, normal conjunctiva - Neck Exam Neck:: thyroid normal, no lymphadenopathy - Respiratory Exam Comments: Bilateral coarse breath sounds with no audible wheeze. Unchanged from yesterday. Intubated and sedated. Appears comfortable. - Cardiovascular Exam Cardiac:: S1, S2 - GI Exam GI:: soft, obese - Skin Exam Skin: warm - Neurological Exam Intubated and sedated. - Extremities Exam Extremities: no cyanosis, no clubbing, edema Assessment and Plan (1) Atrial fibrillation with RVR Status: Acute Category: Medical Code(s): I48.91 - Unspecified atrial fibrillation (2) Elevated troponin Status: Acute Category: Medical Code(s): R77.8 - Other specified abnormalities of plasma proteins (3) Acute respiratory failure with hypoxia Status: Acute Category: Medical Code(s): J96.01 - Acute respiratory failure with hypoxia (4) Pneumonia due to 2019 novel coronavirus Status: Acute Category: Medical Code(s): U07.1 - COVID-19; J12.82 - Pneumonia due to coronavirus disease 2019 (5) COVID-19 virus detected Status: Acute Category: Medical Code(s): U07.1 - COVID-19 (6) Obesity (BMI 30.0-34.9) Status: Acute Category: Medical Code(s): E66.9 - Obesity, unspecified (7) Hypertension Status: Chronic Category: Medical Code(s): I10 - Essential (primary) hypertension (8) Uncontrolled type 2 diabetes mellitus Status: Chronic Category: Medical Code(s): E11.65 - Type 2 diabetes mellitus with hyperglycemia (9) Acute renal failure Status: Acute Category: Medical Code(s): N17.9 - Acute kidney failure, unspecified (10) Metabolic acidosis Status: Acute Category: Medical Code(s): E87.2 - Acidosis - Assessment and plan all Dx Assessment and Plan for all problems:: # Acute hypoxic respiratory failure needing mechanical ventilation: # COVID-19 pneumonia: #Septic shock 75-year-old unknown smoking history, history of type 2 diabetes presented with COVID-19 and worsening respiratory failure. Patient respiratory status rapidly declined from admission eventually needing mechanical ventilation with inhalers post admission. Patient also had a code PEA status post ROSC after 3 cycles of CPR yesterday. Interval update: Patient respiratory status remained stable from yesterday, oxygenation slightly worsened with a PaO2 today at 75.5. Patient with persistent respiratory metabolic acidosis worsening from yesterday along with hyperkalemia and worsening creatinine. Patient anuric with a total urine of 24 cc in the last 24 hours. Abdominal soft on examination, ultrasound did not show any evidence of cholecystitis Renal ultrasound within normal limits. Lipase normal. BAL culture showing gram-positive cocci in pairs. Hemodynamic status. CRE screen resulted positive. Patient has no response to Lasix 160 given yesterday Plan: -Continue mechanical ventilation with lung protective strategy, current vent settings include tidal volume of 420, PEEP of 16 FiO2 of 100%, rate increased to 22 today - Lasix 160 mg IV once - Increase bicarb drip at 100 mL/h - Change antibiotics to meropenem and levofloxacin, renally dosed -Continue lung protective ventilation with mechanical ventilatory support -Continue dexamethasone for COVID-19 pneumonia. Remdesivir stopped -Continue heparin drip -DuoNebs every 6 hours scheduled -Continue pressor support to maintain a MAP goal of greater than 65, -F/U with cardiology recommendations -Sedation and analgesics with a RASS goal of negative 2 to negative 3, on the CPOT of 0, will aim for deep sedation. Total critical care time spent on this patient throughout today is 35 minutes manag
[2020-03-20 09:59] LABS: Activated Partial Thrombo Time 63.8 seconds (23.6-34.0)
--- NOTE | 2020-03-20 10:39 | PC.NURSE ---
SBP 89. Phenyl gtt increased to 90mcg/min. Dr. Tirado rounded and ordered 1 liter LR bolus. Order faxed to pharmacy.
--- NOTE | 2020-03-20 11:59 | PC.NURSE ---
pt's ET tube has a leak and is not holding any air in the cuff. ED notified for changing out the ET tube. Rosalia Rodriges arrived and changed out the ET tube with a stylet. RT (Cecelia) @ BS. No difficulty noted. Repeat CXR ordered.
--- NOTE | 2020-03-20 12:01 | XR_ITS ---
PROCEDURE: XR CHEST PORTABLE Referring Doctor: Austin Tirado Patient Age:75Y CLINICAL HISTORY: pt reintubated Bilateral pneumonia COMPARISON: CT CT CHEST WO CON from 03/16/2020 CR XR CHEST PORTABLE from 03/17/2020 CR XR CHEST PORTABLE from 03/17/2020 CR XR CHEST PORTABLE from 03/19/2020 FINDINGS: I am told patient is been reintubated. ET tube is satisfactory position on today's supine portable chest. ET tube tip approximately 5 cm above jessica. NG tube remains satisfactory position. It is is seen passing through GE junction with tip at right upper quadrant, directed towards the distal stomach. A central line enters from the right neck with tip at SVC-stable Less optimal inspiration but there is diffuse bilateral infiltrates which appears slightly very slightly more pronounced today Right chest. The diffuse infiltrate become slightly more pronounced right infrahilar region medial right base-this area likely stable accentuated by less optimal inspiration. Is also a patchy area of density lateral right base which may reflect a small patchy area of infiltrate versus a small area of pleural fluid. Left chest. He appears to be some progression of the patchy left infrahilar-left lower lobe infiltrate. IMPRESSION: ET tube satisfactory position NG tube satisfactory. Central line stable/satisfactory Diffuse bilateral pneumonia. Suggestion slight progression infiltrate left infrahilar region left lower lobe since yesterday Dictated by: Kaiser Huitron MD 03/20/2020 13:53 Kaiser Huitron MD in [facility] 03/20/2020 13:53
--- NOTE | 2020-03-20 13:28 | PC.NURSE ---
CHANGED ENDOTRACHEAL TUBE DUE TO BLOWN CUFF. GARY TELLEZ CHANGED OUT TUBE WITH NO COMPL;ICATIONS.
--- NOTE | 2020-03-20 16:00 | PC.NURSE ---
gastric residual has been 0mL @ 0800, 1200, and 1600. Tubefeed rate increased to 40mL/hr.
--- NOTE | 2020-03-20 17:17 | DIET.NUTRFU ---
Addendum entered by Jacklyn Up 03/21/20 16:57: Pt in critical condition with renal failure, hyperglycemia, and continued elevated K. Recommend hypocaloric feeding of 14kcal/kg (ABW) at this time to lessen renal load. Goal rate changed in order, fluids slightly increased to 200ml q 4h to account for fluids lost from formula, total fluids remains conservative at 1200ml. Plan change communicated with RN. Regimen at 34ml/h provides 1232kcal and 51g protein. Pt without abdominal signs poor tolerance other than significant weight gain t/o stay, which is difficult to determine major etiology of. Continuing to monitor and will reassess further nutritional care plans as indicated. Original Note: Pt with fair tolerance advancement TF, abdominal distention and elevated K, BG. TF goal rate changed to 52ml/hr. Water flushes of 160 ml q 4 hr added to meet fluid needs not provided by formula, IVF dc'd Regimen provides 1800kcal, 75g protein, 127g cho, 111g fat, and 942ml free water.Total fluids with flushes 1900ml, within conservative needs. Continuing to monitor tolerance, will alter as indicated.
[2020-03-20 20:23] LABS: Activated Partial Thrombo Time 63.5 seconds (23.6-34.0)
--- NOTE | 2020-03-20 20:27 | PC.NURSE ---
Spoke with Leonel Sloan from pharmacy. No changes to Heparin gtt. Currently infusing at 700 units/hr.
[2020-03-21] VITALS (31 sets, daily range): BP systolic 33–138; BP diastolic 24–71; PULSE 54–100; RESP 19–25; TEMP 34.9–36.8; O2SAT 57–96; BMI 37.0
--- NOTE | 2020-03-21 06:00 | XR_ITS ---
PROCEDURE: XR CHEST PORTABLE Referring Doctor: Awais Carrasquillo Patient Age:75Y CLINICAL HISTORY: ETT and OG placement Technologist notes the patient was difficult position with low quality imaging. The dropping O2 sats a COMPARISON: CT CT CHEST WO CON from 03/16/2020 CR XR CHEST PORTABLE from 03/17/2020 CR XR CHEST PORTABLE from 03/19/2020 CR XR CHEST PORTABLE from 03/20/2020 FINDINGS: This is a very limited portable supine chest patient rotated to the right but however it does show that the ET tube is in satisfactory position 4.7 cm above the jessica. . Again NG tube seen passing well into the stomach with tip towards right upper quadrant projected over the distal most stomach. . As on yesterday's study we again see the central line entering from the right neck of from internal jugular entry site with tip at SVC Diffuse lung infiltrates bilateral airspace disease compatible with severe multifocal pneumonia and or pulmonary edema. Although today's study is quite limited the left lung better visualized on the right due to the rotation and position. There does appear to be increased density in progression of the central infiltrate on the left radiating from the perihilar region now with some air bronchograms seen centrally. The right lung is less well visualized but there is diffuse infiltrate here as well with additional opacity of reflecting focal infiltrate or pleural fluid towards the lateral right base. IMPRESSION: ET tube, NG tube, central line appear satisfactory position Today's CXR study is quite limited due to rightward rotation. However bilateral airspace disease have shown progression the since yesterday particular at the left lung; . Suspect this appearance reflects combination of multifocal pneumonia along with a likely element of CHF Dictated by: Kaiser Huitron MD 03/21/2020 08:05 Kaiser Huitron MD in [facility] 03/21/2020 08:05
[2020-03-21 06:50] LABS: Basophils # 0.3 K/mm3 (0-0.2); Basophils % 1.2 % (0.1-2.0); Hematocrit 37.8 % (42.0-52.0); Hemoglobin 11.7 g/dL (14.1-18.0); Lymphocytes # 1.3 K/mm3 (0.7-4.5); Lymphocytes % 5.3 % (10-50); Mean Corpuscular HGB Conc 30.9 g/dL (31.8-35.4); Mean Corpuscular Hemoglobin 31.8 pg (27.0-31.2); Mean Corpuscular Volume 102.9 fl (80-94); Mean Platelet Volume 10.3 fl (7.4-10.4); Monocytes # 1.4 K/mm3 (0.1-1.0); Monocytes % 5.8 % (1.7-9.3); Neutrophils # 20.7 K/mm3 (1.8-7.8); Neutrophils % 87.7 % (37.0-80.0); Platelet Count 366 K/mm3 (142-424); Red Blood Count 3.67 M/mm3 (4.60-6.20); Red Cell Distribution Width 14.7 % (11.5-17.5); White Blood Count 23.7 K/mm3 (4.8-10.8)
[2020-03-21 06:52] LABS: MANUAL DIFFERENTIAL MANUAL DIFFERENTIAL (MANUAL DIFF)
[2020-03-21 06:59] LABS: Anion Gap 16.7 mEq/L (5-15); Carbon Dioxide 16 mmol/L (22.0-30.0); Chloride 115 mmol/L (98-107); Creatinine Clearance Estimated 16 mL/min (50-200); Estimated Glomerular Filt Rate 9 ml/min (>60); GFR (African American) 11 ML/MIN (>60); Potassium 5.7 mmoL/L (3.5-5.1); Sodium 142 mmol/L (136-145)
--- NOTE | 2020-03-21 07:00 | PC.NURSE ---
Pt desat this AM on vent. O2 declined to 70s. Pt was bagged by RT. Other VS remained stable. MD organic preparation analyst notified. Lasix 80 mg IV ordered. Pt continues to be edematous t/o body. He has 2 to 3+ edema to all extremities. Abdomen is distended. No urine output this shift. FSBS has been elevated. Vent settings unchanged from prior assessment. Medication administered per may. Will continue to monitor.
[2020-03-21 07:04] LABS: Glucose 436 mg/dl (74-100)
[2020-03-21 07:05] LABS: Blood Urea Nitrogen 115 mg/dl (9-20)
[2020-03-21 07:06] LABS: Calcium 6.8 mg/dl (8.4-10.2)
[2020-03-21 07:36] LABS: Corrected White Blood Count 22.4 K/mm3 (4.8-10.8); Lymphocytes % 3 % (10-50); Macrocytosis 1+; Monocytes % 7 % (2-9); Neutrophils % 90 % (42-76); Nucleated Red Blood Cells 6; Platelet Estimate Normal; RBC Morphology Normal; Total Cells Counted 100
[2020-03-21 07:37] LABS: Burr Cells 1+
[2020-03-21 07:44] LABS: Activated Partial Thrombo Time 57.5 seconds (23.6-34.0)
[2020-03-21 07:47] LABS: ABG Base Excess -13.8 mmol/L (-2.4-2.3); ABG HCO3 14.1 mmhg (22.0-26.0); ABG Oxygen Saturation 90 % (90-100); ABG PCO2 35.8 mmhg (35.0-45.0); ABG PH 7.21 mmol/L (7.35-7.45); ABG PO2 65.4 mmhg (80-100); ABG TCO2 15.2 mmhg (23-27)
[2020-03-21 07:54] LABS: Oxygen 100 %; PEEP 16; Vent Rate 22
[2020-03-21 07:55] LABS: Source ARTERIAL LINE; Tidal Volume 420
--- NOTE | 2020-03-21 08:00 | PC.NURSE ---
gastric residual 0mL. Increased tubefeed rate to 50mL/hr.
--- NOTE | 2020-03-21 08:46 | HMH.ACPN2 ---
Internal Medicine - PN: Sree *Date: 03/21/20 *Time: 08:49 Interval history: No respiratory issues overnight other than his trach tube developed a cuff leak and was changed without incident. Urine output remains poor. Exam Vital signs and Labs for Last 24 Hours: Temp Pulse Resp BP Pulse Ox 97.5 F L 78 22 138/62 89 L 03/21/20 08:00 03/21/20 08:00 03/21/20 08:00 03/21/20 08:00 03/21/20 08:00 Laboratory Results - last 24 hr 03/20/20 05:45: Total Counted 100, Neutrophils % (Manual) 89 H, Lymphocytes % (Manual) 4 L, Monocytes % (Manual) 7, Nucleated RBCs 2, Platelet Estimate Normal, Macrocytosis 1+ 03/20/20 09:25: APTT 63.8 H* 03/20/20 19:55: APTT 63.5 H* 03/21/20 06:30: APTT 57.5 H* 03/21/20 06:30: WBC 23.7 H*, Corrected WBC 22.4 H*, RBC 3.67 L, Hgb 11.7 L, Hct 37.8 L, MCV 102.9 H, MCH 31.8 H, MCHC 30.9 L, RDW 14.7, Plt Count 366, MPV 10.3, Neut % (Auto) 87.7 H, Lymph % (Auto) 5.3 L, [place] % (Auto) 5.8, Eos % (Auto) 0.0 L, Baso % (Auto) 1.2, Neut # (Auto) 20.7 H, Lymph # (Auto) 1.3, [place] # (Auto) 1.4 H, Eos # (Auto) 0.0, Baso # (Auto) 0.3 H, Total Counted 100, Neutrophils % (Manual) 90 H, Lymphocytes % (Manual) 3 L, Monocytes % (Manual) 7, Nucleated RBCs 6, Platelet Estimate Normal, RBC Morphology Normal, Macrocytosis 1+, [place] Cells 1+ 03/21/20 06:30: Sodium 142, Potassium 5.7 H, Chloride 115 H, Carbon Dioxide 16 L, Anion Gap 16.7 H, BUN 115 H*, Creatinine 6.20 H, Estimated Creat Clear 16, Estimated GFR 9 L*, Est GFR ( Amer) 11 L*, Glucose 436 H*, Calcium 6.8 L 03/21/20 07:00: Specimen Source Arterial line, O2 % 100, ABG pH 7.21 L*, ABG pCO2 35.8, ABG pO2 65.4 L, ABG HCO3 14.1 L, ABG Total CO2 15.2 L, ABG O2 Saturation 90, ABG Base Excess -13.8 L, Vent Rate 22, Tidal Volume 420, PEEP 16 I & O for Last 24 hours: Intake & Output 03/18/20 03/19/20 03/20/20 03/21/20 11:59 11:59 11:59 11:59 Intake Total 3837.5 / 3837.5 4338.167 / 4338.167 5936.167 / 5936.167 7631.667 / 7631.667 Output Total 278 / 278 56 / 56 Balance 3559.5 / 3559.5 4282.167 / 4282.167 5921.167 / 5921.167 7617.667 / 7617.667 Weight 195 lb 8.8 oz 204 lb 12.8 oz 180 lb 12.465 oz 236 lb 8 oz Microbiology Reports for the Last 24 Hours: Microbiology 03/17/20 10:48 Lung,Right Lower Lobe Gram Stain - Final 03/17/20 10:48 Lung,Right Lower Lobe Bronchial Aspirate Culture - Final Normal Respiratory Irina 03/16/20 01:25 Blood Blood Culture - Final NO GROWTH AFTER 5 DAYS 03/16/20 01:25 Blood Blood Culture - Final NO GROWTH AFTER 5 DAYS Narrative: Vent settings: FiO2 100%, tidal volume 420, rate 18, PEEP 16. Breath sounds are diminished bilaterally. No wheezes. Heart is distant but regular. He has developed anasarca. Assessment and Plan (1) Atrial fibrillation with RVR Status: Acute Category: Medical Code(s): I48.91 - Unspecified atrial fibrillation (2) Elevated troponin Status: Acute Category: Medical Code(s): R77.8 - Other specified abnormalities of plasma proteins (3) Acute respiratory failure with hypoxia Status: Acute Category: Medical Code(s): J96.01 - Acute respiratory failure with hypoxia (4) Pneumonia due to 2019 novel coronavirus Status: Acute Category: Medical Code(s): U07.1 - COVID-19; J12.82 - Pneumonia due to coronavirus disease 2019 (5) COVID-19 virus detected Status: Acute Category: Medical Code(s): U07.1 - COVID-19 (6) Obesity (BMI 30.0-34.9) Status: Acute Category: Medical Code(s): E66.9 - Obesity, unspecified (7) Hypertension Status: Chronic Category: Medical Code(s): I10 - Essential (primary) hypertension (8) Uncontrolled type 2 diabetes mellitus Status: Chronic Category: Medical Code(s): E11.65 - Type 2 diabetes mellitus with hyperglycemia (9) Acute renal failure Status: Acute Category: Medical Code(s): N17.9 - Acute kidney failure, unspecifi
[2020-03-21 11:24] LABS: POC Glucose,Bedside 419 (70-110)
[2020-03-21 11:24] LABS: POC Glucose,Bedside 378 (70-110)
[2020-03-21 11:24] LABS: POC Glucose,Bedside 383 (70-110)
[2020-03-21 11:24] LABS: POC Glucose,Bedside 398 (70-110)
--- NOTE | 2020-03-21 11:42 | PC.NURSE ---
SBP 140. Phenyl gtt decreased to 70mcg/min
[2020-03-21 12:14] LABS: POC Glucose,Bedside 472 (70-110)
--- NOTE | 2020-03-21 12:25 | PC.NURSE ---
Nancy camara MD. Dr. Short called back. Updated him that pt's BP is dropping despite increase in Phenyl gtt. SBP 90s. O2 sat is sustaining 77-78% on 100% fiO2 despite RT attempts to increase sats. FSBS is 472 as well. Pt is also a FULL CODE at this time. Dr. Short to call Dr. Carrasquillo. Dr. Carrasquillo called back and said he would contact family regarding code status.
--- NOTE | 2020-03-21 12:34 | PC.NURSE ---
Dr. Carrasquillo called back and reports that wants pt to be a DNR. Verbalized understanding. Called and verified that her wishes are for pt to be a DNR. 2nd RN (Skylar Rodriguez RN) spoke to and verified as well. DNR paper signed by myself and Skylar. Order entered in the computer. Notified household refrigeration mechanic (Jessica), who reports that family members may visit pt with full PPE.
--- NOTE | 2020-03-21 13:15 | PC.NURSE ---
pt's and son made a visit to pt's BS. They stayed for aprox 15 min and then left. Both were in full PPE during visit.
--- NOTE | 2020-03-21 15:48 | PC.NURSE ---
SBP 82. Phenyl gtt increased to 90mcg/min.
--- NOTE | 2020-03-21 16:12 | PC.NURSE ---
SBP 88 continues. Phenyl gtt increased to 100mcg/min. Gastric residual 0mL. Tubefeed rate increased to goal of 52mL/hr.
--- NOTE | 2020-03-21 16:51 | PC.NURSE ---
notified Dr. Short of the following: FSBS 504, rectal temp 94.9, O2 sat 65% on 100% fiO2, and BP 76/48 via arterial line. Order for renata kurter. No other orders received. Pt is a DNR. Family is aware of poor prognosis per primary team. Renata kurter placed. Pt also had a large liquid BM.
[2020-03-21 16:56] LABS: POC Glucose,Bedside 504 (70-110)
--- NOTE | 2020-03-21 17:02 | PC.NURSE ---
dietary changed goal rate of tubefeeds to 34mL/hr. Decreased rate to 34mL/hr.
--- NOTE | 2020-03-21 17:25 | PC.NURSE ---
Dr. Short made rounds and ordered Lasix 80mg IV. Order faxed to [place].
--- NOTE | 2020-03-21 17:49 | PC.NURSE ---
this tech swept and mopped pt rooms.
--- NOTE | 2020-03-21 20:35 | PC.NURSE ---
notified of pt condition. VS declining. BP 77/37, P 71, O2 73%, T 95.9. FSBS 559. 12 units humalog administered. Stat blood glucose obtained. No new orders. Pt remains on Ridge gtt titrated up to max of 180 mcg/min. Fentanyl at 75 mcg/hr. Versed 0.1 mg/kg/hr. NS with bicarb @ 100 ml/hr. Pulmocare @ 34 ml/hr. Vent settings are as follows: AC. 100% FiO2, TV 420, R 22, PEEP 16.
[2020-03-21 20:57] LABS: Glucose,Random 542 mg/dL (74-100)
--- NOTE | 2020-03-21 21:49 | PC.NURSE ---
Family notified of pt condition. Family previously came today and visited with pt. Belongings sent home with family during prior shift. Family confirmed having belongings on phone with this nurse. Family stated that arrangements are to be made at [facility].
--- NOTE | 2020-03-21 23:33 | P.DN_ITS ---
Pronouncement Note - Date and Time of Date of : 03/21/20 Time of : 23:05 - PCOD Preliminary cause of : Acute respiratory failure - Additional Data Confirmation of : no pulse, no respirations, pupils fixed and dilated Family: contacted Attending/PCP notified?: Yes Attending physician: Awais Carrasquillo MD Was code activated?: No Autopsy requested?: No cellophane wrapping examiner notified?: No Organ bank notified?: Yes Advance directives: Yes
--- NOTE | 2020-03-22 00:37 | PC.NURSE ---
At 2300, BP declined more, 33/24. HR became more irregular. Family was called and updated. Family was placed on speaker so they could say goodbye to pt. Speaker was placed to ear until HR was asystole.TOD 2305. MD Short was notified and requested for ER MD to pronounce. ER MD Lewis pronounced. Heraclio was notified at 2332. Spoke with Shanice Whitley. Pt was ruled out for donation. #[id number]. Post mortem care provided. Arterial, central and peripheral lines removed. F/C DC. Jayesh Mejia was notified per family request.
--- NOTE | 2020-03-22 15:46 | [facility].DCSUM ---
General - General Admission date:: 03/16/20 <Awais Carrasquillo - 04/05/20 16:28> 03/16/20 <LazaroBarby black - 03/22/20 15:46> Discharge date: 03/22/20 (Pt ) <Barby Lazaro - 03/22/20 22:11> HPI HPI: Mr. Sahu is a 75-year-old male with a history of type 2 diabetes mellitus with diabetic retinopathy and neuropathy, hypertension, hyperlipidemia, medical noncompliance, obesity with a BMI of 30.5, TIAs, and seasonal allergies who presented to the emergency room with shortness of breath. According the ER record he had not been feeling well since the holidays. When questioning he admited to not feeling well for the past week. He described shortness of breath and frequent falls. He had to be picked up by his sons. He denied cough although he coughed frequently during the assessment. He stated the cough was nonproductive. He also stated that he had not had a fever. He described some postnasal drainage. He felt he had been eating and drinking as usual at home. He also stated that his whole family had been sick. With evaluation in the emergency room chest x-ray and CT of the chest revealed multifocal ground glass infiltrates throughout both lungs consistent with COVID-19 related pneumonia, cardiomegaly with coronary artery calcifications and cholelithiasis. Laboratory data: ABGs revealed a pH of 7.4 PCO2 of 29.5 PO2 53.2 and a bicarb of 17.7. CBC with a white blood cell count of 8900, hemoglobin of 13.8 and hematocrit of 43.8 with a left shift. Blood chemistries revealed normal electrolytes and BUN of 67 creatinine of 2.2. GFR was 29 and Blood sugar 299. Lactate was 3.4 and reduced to 1.4 after IV fluid boluses. Patient was also given dexamethasone IV and to receive remdesivir. Also to note patient Covid IgG was positive and IgM was negative. PCR was positive. Temp on admission to the emergency room was 101.1. This patient was admitted to the Covid unit with routine Covid orders. We will add Rocephin and Zithromax as well as DuoNeb's. <Joi Lazarohy - 03/22/20 16:09> Hospital Course Hospital Course: Patient was started on COVID med protocol on admission. He had a rapid decline in his respiratory status with problems maintaining O2 sat. He was switched to Vapotherm. He also went into A. fib and was started on a Cardizem drip. Cardiology was consulted. Patient did arrest on 03/17/2019 with return of spontaneous circulation after 3 rounds of CPR and 2 doses of epi. He was thus intubated and placed on the vent at this time. He required very high ventilator settings for his hypoxemia. PEEP was increased to 20 as he was having poor lung compliance. He was also started on IV pressor, phenylephrine, as well as a heparin drip and was continued on Rocephin and Zithromax along with remdesivir and dexamethasone for COVID-19 pneumonia. Patient continued to be followed throughout his stay by cardiology and pulmonology. Renal function began to deteriorate creatinine of 3.6. He remained on high vent settings and Ridge-Synephrine had to be further titrated due to hypotension. He was also on fentanyl and versed for sedation. 01/17/2021 renal function continued to deteriorate. Also metabolic acidosis worsened. He remained sedated on the ventilator with max settings. He was given 160 mg of Lasix and initiated on a bicarb drip. He required Arterial line insertion. Dr. Carrasquillo did keep the family informed of the gravity of his condition with the deteriorating renal function and possible need for dialysis. Family was to consider this treatment. Bicarb drip was increased. Family did make him a DNR. He did receive additional dosages of Lasix without response. Antibiotics were changed to meropenem and levofloxacin. Patient was receiving tube feedings. He remained on fentanyl and versed for sedation. On 03/21 the family still had not made a decision on dialysis. White count had continued to increase and was 23,000. BUN a
[2020-05-25 13:36] LABS: Lactate Arterial 2.4 mmol/L (0.4-2.0); Reflex Lactic Add Lactic Reflex
== END 2020-03-22 01:50 | disposition expired | DRG 207 ==
LOC: ER 06:32 → ICU 13:14
PROVIDERS: Family Medicine; Internal Medicine Pulmonary Disease; Nurse Practitioner Family; Admitting Provider Family Medicine; Emergency Provider Emergency Medicine; PCP Family Medicine; Visit Provider Family Medicine
DX: U07.1 COVID-19 (principal); J12.82 Pneumonia due to coronavirus disease 2019; J96.01 Acute respiratory failure with hypoxia; N17.9 Acute kidney failure, unspecified; E87.2 Acidosis; E11.65 Type 2 diabetes mellitus with hyperglycemia; I48.91 Unspecified atrial fibrillation; Z79.4 Long term (current) use of insulin; Z79.82 Long term (current) use of aspirin; Z79.899 Other long term (current) drug therapy; I10 Essential (primary) hypertension; E11.319 Type 2 diabetes mellitus with unspecified diabetic retinopathy without macular edema; E11.40 Type 2 diabetes mellitus with diabetic neuropathy, unspecified
CPT/HCPCS: 36556; 71045; 71250; 76700; 80048; 80053; 81001; 82550; 82553; 82803; 82947; 82962; 83605; 83690; 83735; 84439; 84443; 84484; 85007; 85025; 85651; 85730; 86140; 86328; 87040; 87070; 87081; 87205; 87581; 87633; 87798; 93005; 93306; 94002; 94003; 94640; 94760; 94761; 96365; 96366; 96376; 99285; J0456; J1956; J2185; U0003